=== PATIENT | male | born 1935 | race Two or more races ===

== ENCOUNTER → 2020-02-27 | Emergency (ER) | payer OTHER ==
[~2020-02-27] VITALS: Ht 175.3 cm; Wt 68.0 kg
[~2020-02-27] MED LIST: MORPHINE SULFATE 4 MG/ML SYR/VIAL IV ONE; ONDANSETRON HCL 4 MG/2 ML VIAL IV ONE
[2020-02-27 14:55] LABS: Basophils # (auto) 0 10 ^3/uL (0-0.2); Basophils % (auto) 0.2 % (0.0-2.0); Eosinophils # (auto) 0.4 10 ^3/uL (0-0.8); Eosinophils % (auto) 4.9 % (0.0-7.0); Hematocrit 39.8 % (41.0-53.0); Hemoglobin 13.5 g/dL (13.5-17.5); Lymphocytes # (auto) 1.3 10 ^3/uL (0.4-5.4); Lymphocytes % (auto) 16.5 % (10.0-50.0); Mean Corpuscular Hemoglobin 32.2 pg (28.0-32.0); Mean Corpuscular Hgb Conc. 33.8 g/dL (32.0-36.0); Mean Corpuscular Volume 95.3 fL (80.0-100.0); Monocytes # (auto) 0.6 10 ^3/uL (0-1.3); Monocytes % (auto) 7.8 % (0.0-12.0); Neutrophils # (auto) 5.5 10 ^3/uL (1.6-8.6); Neutrophils % (auto) 70.6 % (37.0-80.0); Platelet Count (auto) 190 10^3/uL (140-450); Red Blood Cells 4.17 10^6/uL (4.5-5.90); Red Cell Distribution Width 13.6 % (11.8-14.3); White Blood Cell 7.8 10^3/uL (4.4-10.8)
[2020-02-27 15:15] LABS: Albumin 3.8 g/dL (3.4-5.0); Calcium 8.4 mg/dL (8.5-10.1); Potassium 3.9 mmol/L (3.5-5.1)
[2020-02-27 15:19] LABS: BUN/Creatinine Ratio 20.2; Bilirubin, Total 0.6 mg/dL (0.2-1.0); Total Protein 7.1 g/dL (6.4-8.2)
[2020-02-27 16:08] VITALS: BP 130/60
== END | disposition home or self-care (01) ==
LOC: ER 13:58
DX: R10.32 Left lower quadrant pain (principal); I10 Essential (primary) hypertension
CPT/HCPCS: 36415; 74176; 80053; 83690; 85025; 93005

== ENCOUNTER 2023-12-05 01:35 | Emergency (ER) | payer OTHER ==
[~2023-12-05] VITALS: Ht 175.3 cm; Wt 80.0 kg
[2023-12-05 01:43] VITALS: O2SAT 100
[2023-12-05] MEDS ORDERED: cloNIDine HCL 0.1 MG TAB PO ONE (01:45)
[2023-12-05 02:04] LABS: Basophils # (auto) 0 10 ^3/uL (0-0.2); Basophils % (auto) 0.2 % (0.0-2.0); Eosinophils # (auto) 0.2 10 ^3/uL (0-0.8); Eosinophils % (auto) 2.2 % (0.0-7.0); Hematocrit 41.6 % (41.0-53.0); Hemoglobin 14.2 g/dL (13.5-17.5); Lymphocytes # (auto) 2.1 10 ^3/uL (0.4-5.4); Mean Corpuscular Hemoglobin 33.5 pg (28.0-32.0); Mean Corpuscular Hgb Conc. 34.1 g/dL (32.0-36.0); Mean Corpuscular Volume 98.3 fL (80.0-100.0); Monocytes # (auto) 1.1 10 ^3/uL (0-1.3); Monocytes % (auto) 14.7 % (0.0-12.0); Neutrophils # (auto) 4.3 10 ^3/uL (1.6-8.6); Neutrophils % (auto) 55.9 % (37.0-80.0); Nucleated Red Blood Cells % 0.1 %; Red Blood Cells 4.23 10^6/uL (4.5-5.90); Red Cell Distribution Width 12.9 % (11.8-14.3); White Blood Cell 7.6 10^3/uL (4.4-10.8)
[2023-12-05 02:44] LABS: Chloride 103 mmol/L (98-107); Potassium 4.7 mmol/L (3.5-5.1); Sodium 135 mmol/L (136-145)
[2023-12-05 02:45] LABS: Anion Gap 7 (5-15); Carbon Dioxide 25 mmol/L (20-30)
[2023-12-05 02:46] LABS: Calcium 9.6 mg/dL (8.7-10.4)
[2023-12-05 02:50] LABS: BUN/Creatinine Ratio 14.3 (10.0-20.0); Blood Urea Nitrogen 12 mg/dL (9-23); Glucose 128 mg/dL (74-106)
[2023-12-05 04:34] VITALS: BP 155/89
[2023-12-05 04:35] VITALS: PULSE 71; RESP 71
== END 2023-12-05 03:00 | disposition home or self-care (01) ==
LOC: EDSEX 01:35 → EDBD 01:35 → ER 01:35
DX: I10 Essential (primary) hypertension (principal)
CPT/HCPCS: 36415; 80048; 85025; 93005

== ENCOUNTER 2025-05-24 12:04 | Inpatient (IN) | payer OTHER ==
[~2025-05-24] VITALS: Ht 172.7 cm; Wt 64.4 kg
--- NOTE | 2025-05-24 12:42 | ED.PDOC ---
GI ASSESSMENT HPI Comments HPI: This is a 89 year old male presenting to the ED with chief complaint of abdominal pain. Patient reports that he has been experiencing intermittent RUQ and LUQ pain for the past 6 weeks, occurring for 5-10 seconds before quickly resolving. Patient relays that he had visited today and was advised to come to the ED for further evaluation to rule out cholelithiasis, pancreatitis, or other abdominal conditions. Patient denies any nausea, vomiting, diarrhea, fever, chills, chest pain, or SOB. Initial Vitals BP: 174/84 HR: 71 RR: 16 O2 Sat: 98% Temp: 97.8F Past Medical history: HTN, DM, Prostate cancer Past Surgical history: Thyroidectomy, Prostatectomy Medications: Levothyroxine Social History: Denies smoking, ETOH, and drug use. Allergies: NKDA jimenez: abd pain HPI: Poor Historian. REVIEW OF SYSTEMS: CONSTITUTIONAL: Denies acute: fever, diaphoresis, chills, generalized weakness. HEAD: Denies acute: headache, photophobia Eyes: Denies acute: Double vision, vision loss, eye pain, eye discharge. EARS: Denies acute: tinnitus, hearing loss, ear discharge, ear pain, THROAT: Denies acute: sore throat, swelling, difficulty swallowing , pain with swallowing, change in voice. NECK: Denies acute: neck pain, neck swelling, stiff neck. HEART: Denies acute : chest pain, palpitations, LUNGS: Denies acute: SOB, wheezing, cough, hemoptysis ABDOMEN: Denies acute: Nausea, Vomiting, diarrhea, melena , hematemesis, hematochezia SKIN: Denies acute: rash, redness, lesions, itchiness. EXTREMITIES: Denies acute: calf pain, numbness, tingling, weakness, denies pain in extremity. Denies acute: Low back pain. Neuro: Denies acute: focal neurological deficit, motor or sensory focal neurological deficit, tremors, seizure like activity, confusion, dizziness, change in mental status, loss of bowel or bladder function, cauda equina like symptoms. : Denies acute: dysuria, hematuria, flank pain, increase in urinary frequency. PSYCH: Denies acute: hallucination, suicidal ideation, homicidal ideation. PHYSICAL EXAM: General: ----no----acute distress, awake and alert. Head: normocephalic, atraumatic. Neck: supple, trachea is midline, no swelling. Throat: Normal phonation. Eyes:, no erythema, no purulent discharge, no proptosis, no icterus. Heart: regular rate, regular rhythm, no significant murmur appreciated. Lungs: no apparent respiratory distress, Able to speak in full sentences. No wheezing, no rhonchi, no crackles. No stridors Clear to auscultation bilaterally. Abdomen: non tender to palpation, non distended, soft, no guarding, no rebound, + bowel sounds. Neuro: Awake, Alert, oriented to name, self, situation, follows commands GCS=15. Speech is normal. Skin: no petechia, no purpura, no cyanosis, non-pale, not jaundice. Lower extremities: --no - Pitting edema no deformity, no focal swelling, no calf TTP. Makes eye contact. moves all four extremities. Face: no apparent facial droop. Ambulating in the ED independently. ED COURSE: DISCLAIMER: This medical document was created using an electronic medical record system with voice recognition software and computerized dictation system. Although this document has been carefully reviewed, there might still be some phonetic and typographical errors. Occasional wrong-word or "sound-alike" substitutions may have occurred due to the inherent limitations of voice recognition software. These areas are purely typographical due to imperfections of the software programs and do not reflect any compromise in the patient's medical care. Please read the chart carefully and recognize, using context, where these substitutions have occurred. Chief Complaint: Abdominal Pain Time Seen by MD: 12:36 Primary Care Provider: UNKNOWN Reviewed Notes: Medications, Allergies Allergies: Coded Allergies: NO KNOWN ALLERGIES (Unverified , 02/27/20) Home Meds Reported Medications Levothyroxine Sodium (Levothyroxine Sodium) 88 Mcg Tab, 1 TAB PO DAILY, #30 TAB 5 Refills 05/24/25 Losartan Potassium (Losartan Potassium) 100 Mg Tab, 1 TAB PO DAILY, #30 TAB 5 Refills 05/24/25 Information Source: Patient, Emergency Med Personnel Mode of Arrival: EMS EKG EKG : Pulse Rate (adult): 66 [place]: Normal Cardiac Rhythm: NSR Block: RBBB Hypertrophy: None ST: Normal Was a procedure done? Was a procedure done?: No GI differential Dx Differential Diagnosis: Other (DDX include but not limited to diverticulitis, colitis, gastroenteritis, acute abdomen, SBO, enteritis, constipation, volvulus, appendicitis, Gallbladder disease, choledocolithiasis, ascending cholangitis, pancreatitis, intraAbdominal mass/neoplasm, hepatitis, UTI, pylonephritis, kidney stone, aneurysm, dissection, Inflammatory bowel disease, gastroparesis, ischemic bowel.) X-Ray, Labs, Meds, VS Vital Signs Date Time Temp Pulse Resp B/P (MAP) Pulse Ox O2 Delivery O2 Flow Rate FiO2 05/24/25 14:01 61 18 98 Venturi Mask 05/24/25 14:01 97.8 61 18 152/89 (110) 98 97.8 05/24/25 13:09 66 05/24/25 12:30 66 05/24/25 12:15 97.8 71 16 174/84 (114) 98 97.8 Lab Test 05/24/25 12:50 05/24/25 12:27 Range/Units White Blood Count 6.2 4.4-10.8 10^3/uL Red Blood Count 4.35 L 4.5-5.90 10^6/uL Hemoglobin 14.1 13.5-17.5 g/dL Hematocrit 41.6 41.0-53.0 % Mean Corpuscular Volume 95.7 80.0-100.0 fL Mean Corpuscular Hemoglobin 32.5 H 28.0-32.0 pg Mean Corpuscular Hemoglobin Concent 33.9 32.0-36.0 g/dL Red Cell Distribution Width 14.4 H 11.8-14.3 % Platelet Count 207 140-450 10^3/uL Mean Platelet Volume 7.9 6.9-10.8 fL Neutrophils (%) (Auto) 61.5 37.0-80.0 % Lymphocytes (%) (Auto) 25.5 10.0-50.0 % Monocytes (%) (Auto) 11.5 0.0-12.0 % Eosinophils (%) (Auto) 1.3 0.0-7.0 % Basophils (%) (Auto) 0.2 0.0-2.0 % Neutrophils # (Auto) 3.8 1.6-8.6 10 ^3/uL Lymphocytes # (Auto) 1.6 0.4-5.4 10 ^3/uL Monocytes # (Auto) 0.7 0-1.3 10 ^3/uL Eosinophils # (Auto) 0.1 0-0.8 10 ^3/uL Basophils # (Auto) 0 0-0.2 10 ^3/uL Nucleated Red Blood Cells 0.0 % Sodium Level 136 136-145 mmol/L Potassium Level 4.0 3.5-5.1 mmol/L Chloride Level 99 98-107 mmol/L Carbon Dioxide Level 27 20-31 mmol/L Anion Gap 10 5-15 Blood Urea Nitrogen 19 9-23 mg/dL Creatinine 0.88 0.700-1.30 mg/dL Glomerular Filtration Rate Calc 82 >90 mL/min BUN/Creatinine Ratio 21.6 H 10.0-20.0 Serum Glucose 99 74-106 mg/dL Lactic Acid Level 2.8 *H 0.4-2.0 mmol/L Calcium Level 9.5 8.7-10.4 mg/dL Total Bilirubin 0.9 0.2-1.0 mg/dL Aspartate Amino Transferase (AST) 25 13-40 U/L Alanine Aminotransferase (ALT) 18 7-40 U/L Alkaline Phosphatase 136 H 46-116 U/L Troponin I High Sensitivity 5 </=54 ng/L Total Protein 7.4 5.7-8.2 g/dL Albumin 5.1 H 3.2-4.8 g/dL Lipase 29 12-53 U/L Urine Color Light-yellow Yellow Urine Clarity Clear Clear Urine pH 7.5 5.0-9.0 Urine Specific [place] 1.010 1.001-1.035 Urine Protein Negative Negative Urine Ketones Negative Negative Urine Blood Trace H Negative /uL Urine Nitrite Negative Negative Urine Bilirubin Negative Negative Urine Urobilinogen Normal Negative mg/dL Urine Leukocyte Esterase Negative Negative /uL Urine RBC 6 0 - 3 /hpf Urine Microscopic WBC < 1 0-3 /HPF Urine Squamous Epithelial Cells None seen <5 /hpf Urine Bacteria None seen None Seen /hpf Urine Glucose Normal Normal mg/dL [facility] [id number] [facility] [id number] Ph: [phone] DIAGNOSTIC IMAGING Diagnostic Imaging Report : [id number] Signed PATIENT: LUCINA JIMENEZ ACCT: [id number] UNIT: [id number] : 1935 LOC: ER ROOM / BED: / AGE / SEX: 89 / M ADM STATUS: REG ER SERVICE 1230 ORDERING PHYSICIAN: AJ VIZCARRA DO PROCEDURE(s): ABPL - CT AB PEL WO CON-NO ORAL OR IV REASON: upper abd pain ORDER NUMBER(s): [id number], ACCESSION NUMBER(s): [id number] Exam: CT CT AB PEL WO CON-NO ORAL OR IV History: upper abd pain Comparison Study: None TECHNIQUE: Multidetector CT of the abdomen and pelvis without IV contrast. Axial, coronal and sagittal multiplanar reformats were obtained from the axial data set by the technologist. Radiation Dose Information: CT Dose: CTDI volume is 8.03 mGy. Dose-length product is 370.69 mGy*cm FINDINGS: Bibasilar atelectasis. Partially visualized heart is unremarkable. hepatic cysts are noted , largest within the left hepatic lobe measuring up to 2.1 cm. Additional subcentimeter hypodense hepatic lesion is noted that is too small to characterize. Calcified granulomas within the spleen. Otherwise, liver, spleen, gallbladder, pancreas and adrenal glands are unremarkable. 4.1 x 4.6 x 4.4 cm exophytic right renal lower pole soft tissue density mass. No hydronephrosis or renal calculi bilaterally. Bilateral Ureters unremarkable. Urinary bladder is decompressed and demonstrates mild wall thickening. Prostate is not definitely visualized with surgical clips of the expected area of the prostate pelvic sidewall. Question prostatectomy with pelvic sidewall lymph node dissection. Mild gastric wall thickening thickening of proximal small bowel loops The edges most likely from inadequate distension. The remainder of the small bowel loops unremarkable. Appendix is not definitely visualized. Large amount of fecal material within the ascending colon rectum. Wall thickening of the distal rectum. Sigmoid diverticulosis with mild sigmoid wall thickening and minimal stranding. No evidence of intraperitoneal free air or free fluid. No evidence of aortic aneurysm. [id number] atherosclerotic calcification of the aorta and bilateral iliacs. No significant lymphadenopathy. Small fat containing right inguinal hernia. Bilateral prominent inguinal lymph nodes which are most likely reactive. Minimal body wall edema. No destructive osseous lesions noted. 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 Sclerotic foci of the bilateral proximal sacrum, S4 vertebral body, and bilateral pelvic bones which may represent bone islands with Blastic lesions not excluded. IMPRESSION: Wall thickening of the urinary bladder which may be from inadequate distension. Correlation urinalysis is recommended to exclude cystitis. Sigmoid diverticulosis with minimal adjacent fat stranding and mild segmental wall thickening of the sigmoid. Correlate for mild diverticulitis/sigmoiditis. Wall thickening of the distal rectum. Correlate for possible neoplasm. 4.1 x 4.6 x 4.4 cm exophytic right renal lower pole soft tissue density mass. Renal protocol CT / MRI should be considered for further evaluation. Hepatic cysts. Additional subcentimeter hypodense hepatic lesion is noted that is too small to characterize. Additional findings as above. ATED BY: BRANDIE LIZ DO DICTATED DATE/TIME: 05/24/25 1314 SIGNED BY: BRANDIE LIZ DO SIGNED DATE/TIME: 05/24/25 1314 CC: Images Reviewed?: Images reviewed and evaluated by me Time of 1ST Reevaluation: 13:36 Reevaluation 1ST: Unchanged Patient Education/Counseling: Diagnosis, Treatment Family Education/Counseling: No Family Present Comments MDM: patient presented with the above HPI.----abdominal pain--workup was initiated. patient was found with the above mentioned diagnosis. the following medications were ordered: please refer to order lists of meds and tests obtained by myself Dr. Vizcarra. Patient ED course and VS have been stabilized. Patient has been reassessed in the ED and remained in a stable condition. Patient has been observed in the ED adequate length of time to insure improvement/stability. Escalation of care considered: Consideration of escalation to observation or admission Patient was ADMITTED to the medicine team for further evaluation and treatment of their presentation. All the reports of any imaging studies that were ordered by myself were reviewed by myself. Departure 1 Departure Time of Disposition: 14:13 Impression: Primary Impression: Diverticulitis of intestine Additional Impressions: Elevated lactic acid level Abnormal finding on CT scan Disposition: ADMITTED INPATIENT Admit to: [facility] Condition: Guarded Discharged With: Self Critical Care Note Critical Care Time?: No I personally scribed for AJ VIZCARRA DO ([email or web address]) on 05/24/25 at 12:42. Electronically submitted by Kobe Ballard ([email or web address]). I personally scribed for AJ VIZCARRA DO ([email or web address]) on 05/24/25 at 13:09. Electronically submitted by Kobe Ballard ([email or web address]). I personally scribed for AJ VIZCARRA DO ([email or web address]) on 05/24/25 at 13:41. Electronically submitted by Kobe Ballard ([email or web address]). AJ VIZCARRA DO May 24, 2025 12:42
--- NOTE | 2025-05-24 13:16 | DVH ---
Exam: CT CT AB PEL WO CON-NO ORAL OR IV History: upper abd pain Comparison Study: None TECHNIQUE: Multidetector CT of the abdomen and pelvis without IV contrast. Axial, coronal and sagitta l multiplanar reformats were obtained from the axial data set by the technologist. Radiation Dose Information: CT Dose: CTDI volume is 8.03 mGy. Dose-length product is 370.69 mGy*cm FINDINGS: Bibasilar atelectasis. Partially visualized heart is unremarkable. hepatic cysts are noted , largest within the left hepatic lobe measuring up to 2.1 cm. Additional [place] bcentimeter hypodense hepatic lesion is noted that is too small to characterize. Calcified granulomas within the spleen. Otherwise, liver, spleen, gallbladder, pancreas and adrenal glands are unremarka ble. 4.1 x 4.6 x 4.4 cm exophytic right renal lower pole soft tissue density mass. No hydronephrosis or re nal calculi bilaterally. Bilateral Ureters unremarkable. Urinary bladder is decompressed and demonstr ates mild wall thickening. Prostate is not definitely visualized with surgical clips of the expected area of the prostate pelvic sidewall. Question prostatectomy with pelvic sidewall lymph node dissect ion. Mild gastric wall thickening thickening of proximal small bowel loops The edges most likely from inad equate distension. The remainder of the small bowel loops unremarkable. Appendix is not definitely v isualized. Large amount of fecal material within the ascending colon rectum. Wall thickening of the d istal rectum. Sigmoid diverticulosis with mild sigmoid wall thickening and minimal stranding. No evidence of intraperitoneal free air or free fluid. No evidence of aortic aneurysm. [id number] atherosclerotic calcification of the aorta and bila teral iliacs. No significant lymphadenopathy. Small fat containing right inguinal hernia. Bilateral prominent inguinal lymph nodes which are most l ikely reactive. Minimal body wall edema. No destructive osseous lesions noted. Grade 2 anterolisthes is of L5 on S1 with chronic bilateral L5 pars defect. Sclerotic foci of the bilateral proximal sacrum , S4 vertebral body, and bilateral pelvic bones which may represent bone islands with Blastic lesions not excluded. IMPRESSION: Wall thickening of the urinary bladder which may be from inadequate distension. Correlation urinalys is is recommended to exclude cystitis. Sigmoid diverticulosis with minimal adjacent fat stranding and mild segmental wall thickening of the sigmoid. Correlate for mild diverticulitis/sigmoiditis. Wall thickening of the distal rectum. Correlate for possible neoplasm. 4.1 x 4.6 x 4.4 cm exophytic right renal lower pole soft tissue density mass. Renal protocol CT / MRI should be considered for further evaluation. Hepatic cysts. Additional subcentimeter hypodense hepatic lesion is noted that is too small to charac terize. Additional findings as above.
[2025-05-24 13:28] LABS: Hematocrit 41.6 % (41.0-53.0); Hemoglobin 14.1 g/dL (13.5-17.5); Mean Corpuscular Hemoglobin 32.5 pg (28.0-32.0); Mean Corpuscular Volume 95.7 fL (80.0-100.0); Nucleated Red Blood Cells % 0.0 %
[2025-05-24 13:38] LABS: Alanine Aminotransferase 18 U/L (7-40); Anion Gap 10 (5-15); BUN/Creatinine Ratio 21.6 (10.0-20.0); Blood Urea Nitrogen 19 mg/dL (9-23); Calcium 9.5 mg/dL (8.7-10.4); Carbon Dioxide 27 mmol/L (20-31); Chloride 99 mmol/L (98-107); Glucose 99 mg/dL (74-106); Lipase 29 U/L (12-53); Potassium 4.0 mmol/L (3.5-5.1); Sodium 136 mmol/L (136-145); Total Protein 7.4 g/dL (5.7-8.2)
[2025-05-24 13:39] LABS: Bilirubin, Total 0.9 mg/dL (0.2-1.0); Lactic Acid w/Reflex 2.8 mmol/L (0.4-2.0)
[2025-05-24 13:42] LABS: Albumin 5.1 g/dL (3.2-4.8); Alkaline Phosphatase 136 U/L (46-116)
[2025-05-24 14:06] LABS: Urine Protein, UAD Negative (Negative)
[2025-05-24] MEDS ORDERED: HYDROcodone-ACET 5/325MG TAB PO PRN (15:00)
[2025-05-24] MEDS ORDERED: ONDANSETRON HCL 4 MG/2 ML VIAL IV PRN (15:00)
[2025-05-24] MEDS ORDERED: ACETAMINOPHEN 325 MG TAB PO PRN (15:00)
[2025-05-24] MEDS ORDERED: DEXTROSE (50%) 50ML SYRG IV PRN (15:00)
[2025-05-24] MEDS ORDERED: MORPHINE SULFATE INJ 2 MG/ml SYRG IV PRN (15:00)
[2025-05-24] MEDS: CIPROFLOXACIN 400MG/200ML 200 ML IV ONE (15:03)
--- NOTE | 2025-05-24 15:43 | DVHHP2 ---
History of Present Illness Reason for Visit: Abdominal pain History of Present Illness 89-year-old male presents for evaluation of abdominal pain. Patient reports a five week history of intermittent seen nor or abdominal pain. He states that over the past is five days he has been more constant this. Denies nausea or vomiting. No fever or chills. No other acute complaints reported. Past Medical History Prostate cancer, diabetes mellitus, hypertension Past Surgical History Thyroidectomy, prostatectomy Family History Noncontributory Smoke: No ALCOHOL: none Drugs: None Review of Systems Review of Systems Review of systems are currently negative otherwise addressed in HPI. Allergies: Coded Allergies: NO KNOWN ALLERGIES (Unverified , 02/27/20) Medications Current Medications Medications Dose Ordered Sig/Bruno Route Start Time Stop Time Status Last Admin Dose Admin Losartan Potassium 100 mg DAILY PO 05/25/25 10:00 Levothyroxine Sodium 88 mcg QAM@0600 PO 05/25/25 06:00 Atorvastatin Calcium 10 mg HS PO 05/24/25 22:00 Furosemide 20 mg BIDD PO 05/24/25 18:00 Diagnostic Test (Pha) 1 strip ACHS 05/24/25 17:00 Insulin Human Regular ACHS SC 05/24/25 17:00 Dextrose 50 ml UD PRN IV 05/24/25 15:00 Acetaminophen/ Hydrocodone Bitart 1 tab Q4HP PRN PO 05/24/25 15:00 Ondansetron HCl 4 mg Q4HP PRN IV 05/24/25 15:00 Acetaminophen 650 mg Q6HP PRN PO 05/24/25 15:00 Morphine Sulfate 2 mg Q6HPRN PRN IV 05/24/25 15:00 Exam Vital Signs Vital Signs Date Time Temp Pulse Resp B/P (MAP) Pulse Ox O2 Delivery O2 Flow Rate FiO2 05/24/25 14:01 61 18 98 Venturi Mask 05/24/25 14:01 97.8 152/89 (110) 97.8 Exam Gen: 89-year-old male in mild distress. Skin: Warm, dry, normal color and texture, no rash. HEENT: Normocephalic atraumatic, mucous membranes moist and pink. Neck: Cervical and supraclavicular nodes normal without enlargement, trachea is midline, thyroid gland is normal without masses. Pulmonary: Clear to auscultation and percussion bilaterally. Cardiac: Regular rate and rhythm. No murmur Abdomen: Soft, lower abdominal tenderness, nondistended, bowel sounds present all 4 quadrants, no guarding, no rigidity, no organomegaly. Extremities: No cyanosis, clubbing, no edema Neuro: Cranial nerves II through XII grossly intact, normal affect and speech, no focal motor deficits. Labs/Xrays ORDERING PHYSICIAN: AJ VIZCARRA DO PROCEDURE(s): ABPL - CT AB PEL WO CON-NO ORAL OR IV REASON: upper abd pain ORDER NUMBER(s): [id number], ACCESSION NUMBER(s): [id number] Exam: CT CT AB PEL WO CON-NO ORAL OR IV History: upper abd pain Comparison Study: None TECHNIQUE: Multidetector CT of the abdomen and pelvis without IV contrast. Axial, coronal and sagittal multiplanar reformats were obtained from the axial data set by the technologist. Radiation Dose Information: CT Dose: CTDI volume is 8.03 mGy. Dose-length product is 370.69 mGy*cm FINDINGS: Bibasilar atelectasis. Partially visualized heart is unremarkable. hepatic cysts are noted , largest within the left hepatic lobe measuring up to 2.1 cm. Additional subcentimeter hypodense hepatic lesion is noted that is too small to characterize. Calcified granulomas within the spleen. Otherwise, liver, spleen, gallbladder, pancreas and adrenal glands are unremarkable. 4.1 x 4.6 x 4.4 cm exophytic right renal lower pole soft tissue density mass. No hydronephrosis or renal calculi bilaterally. Bilateral Ureters unremarkable. Urinary bladder is decompressed and demonstrates mild wall thickening. Prostate is not definitely visualized with surgical clips of the expected area of the prostate pelvic sidewall. Question prostatectomy with pelvic sidewall lymph node dissection. Mild gastric wall thickening thickening of proximal small bowel loops The edges most likely from inadequate distension. The remainder of the small bowel loops unremarkable. Appendix is not definitely visualized. Large amount of fecal material within the ascending colon rectum. Wall thickening of the distal rectum. Sigmoid diverticulosis with mild sigmoid wall thickening and minimal stranding. No evidence of intraperitoneal free air or free fluid. No evidence of aortic aneurysm. [id number] atherosclerotic calcification of the aorta and bilateral iliacs. No significant lymphadenopathy. Small fat containing right inguinal hernia. Bilateral prominent inguinal lymph nodes which are most likely reactive. Minimal body wall edema. No destructive osseous lesions noted. 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 Sclerotic foci of the bilateral proximal sacrum, S4 vertebral body, and bilateral pelvic bones which may represent bone islands with Blastic lesions not excluded. IMPRESSION: Wall thickening of the urinary bladder which may be from inadequate distension. Correlation urinalysis is recommended to exclude cystitis. Sigmoid diverticulosis with minimal adjacent fat stranding and mild segmental wall thickening of the sigmoid. Correlate for mild diverticulitis/sigmoiditis. Wall thickening of the distal rectum. Correlate for possible neoplasm. 4.1 x 4.6 x 4.4 cm exophytic right renal lower pole soft tissue density mass. Renal protocol CT / MRI should be considered for further evaluation. Hepatic cysts. Additional subcentimeter hypodense hepatic lesion is noted that is too small to characterize. Additional findings as above. Labs Test 05/24/25 15:10 05/24/25 12:50 05/24/25 12:27 Range/Units White Blood Count 6.2 4.4-10.8 10^3/uL Red Blood Count 4.35 L 4.5-5.90 10^6/uL Hemoglobin 14.1 13.5-17.5 g/dL Hematocrit 41.6 41.0-53.0 % Mean Corpuscular Volume 95.7 80.0-100.0 fL Mean Corpuscular Hemoglobin 32.5 H 28.0-32.0 pg Mean Corpuscular Hemoglobin Concent 33.9 32.0-36.0 g/dL Red Cell Distribution Width 14.4 H 11.8-14.3 % Platelet Count 207 140-450 10^3/uL Mean Platelet Volume 7.9 6.9-10.8 fL Neutrophils (%) (Auto) 61.5 37.0-80.0 % Lymphocytes (%) (Auto) 25.5 10.0-50.0 % Monocytes (%) (Auto) 11.5 0.0-12.0 % Eosinophils (%) (Auto) 1.3 0.0-7.0 % Basophils (%) (Auto) 0.2 0.0-2.0 % Neutrophils # (Auto) 3.8 1.6-8.6 10 ^3/uL Lymphocytes # (Auto) 1.6 0.4-5.4 10 ^3/uL Monocytes # (Auto) 0.7 0-1.3 10 ^3/uL Eosinophils # (Auto) 0.1 0-0.8 10 ^3/uL Basophils # (Auto) 0 0-0.2 10 ^3/uL Nucleated Red Blood Cells 0.0 % Sodium Level 136 136-145 mmol/L Potassium Level 4.0 3.5-5.1 mmol/L Chloride Level 99 98-107 mmol/L Carbon Dioxide Level 27 20-31 mmol/L Anion Gap 10 5-15 Blood Urea Nitrogen 19 9-23 mg/dL Creatinine 0.88 0.700-1.30 mg/dL Glomerular Filtration Rate Calc 82 >90 mL/min BUN/Creatinine Ratio 21.6 H 10.0-20.0 Serum Glucose 99 74-106 mg/dL Calcium Level 9.5 8.7-10.4 mg/dL Total Bilirubin 0.9 0.2-1.0 mg/dL Aspartate Amino Transferase (AST) 25 13-40 U/L Alanine Aminotransferase (ALT) 18 7-40 U/L Alkaline Phosphatase 136 H 46-116 U/L Troponin I High Sensitivity 5 </=54 ng/L Total Protein 7.4 5.7-8.2 g/dL Albumin 5.1 H 3.2-4.8 g/dL Lipase 29 12-53 U/L Urine Color Light-yellow Yellow Urine Clarity Clear Clear Urine pH 7.5 5.0-9.0 Urine Specific [place] 1.010 1.001-1.035 Urine Protein Negative Negative Urine Ketones Negative Negative Urine Blood Trace H Negative /uL Urine Nitrite Negative Negative Urine Bilirubin Negative Negative Urine Urobilinogen Normal Negative mg/dL Urine Leukocyte Esterase Negative Negative /uL Urine RBC 6 0 - 3 /hpf Urine Microscopic WBC < 1 0-3 /HPF Urine Squamous Epithelial Cells None seen <5 /hpf Urine Bacteria None seen None Seen /hpf Urine Glucose Normal Normal mg/dL SEPSIS Sepsis Screen Date sepsis recognized/suspect: May 24, 2025 Time Sepsis recognized/suspect: 1214 Recent Procedure: No On Antibiotic Therapy: No Respiratory Rate >20: No Heart Rate >90: No Temp<36 C (96.8 F) or >38.3 C: No SBP <90 or MAP <65 mmHG: No New Acute Mental Status Change: No Is the patient on CPAP, BIPAP,: No Physician Orders Troponin-I Hs (05/24/25 18:00) Troponin-I Hs (05/25/25 00:00) Ct Ab Pel Wo Con-No Oral Or Iv (05/24/25 12:30) Heplock Iv (05/24/25 12:30) Machine Tool Rebuilder (05/24/25 12:30) Electrocardigram (05/24/25 12:30) Losartan Tablet (Cozaar Tablet) (05/25/25 10:00) Levothyroxine Tablet (Synthroid Tablet) (05/25/25 06:00) Atorvastatin (Lipitor) (05/24/25 22:00) Furosemide Tablet (Lasix Tablet) (05/24/25 18:00) * [facility] Vocational Case Manager (05/24/25 14:51) Sodium Chloride 0.9% (05/24/25 15:00) Basic Metabolic Panel (05/25/25 04:00) Glucose Blood (Accu-Chek Comfort Curve T (05/24/25 17:00) Insulin R (Human) (Insulin R) (05/24/25 17:00) Dextrose 50% Syringe (05/24/25 15:00) Admit (05/24/25 14:51) Hydrocodone-Acet 5/325mg Tab ([place] 5/32 (05/24/25 15:00) Ondansetron Hcl (Zofran) (05/24/25 15:00) Complete Blood Count (05/25/25 04:00) Cardiac Diet-2gna,Lofat,Lochol (05/24/25 Dinner) Condition: Stable (05/24/25 14:51) Acetaminophen Tablet (Tylenol Tablet) (05/24/25 15:00) Bedrest With Bathroom Privileg (05/24/25 14:51) Morphine Sulfate Injection (05/24/25 15:00) Vital Signs Date Time Temp Pulse Resp B/P (MAP) Pulse Ox O2 Delivery O2 Flow Rate FiO2 05/24/25 14:01 61 18 98 Venturi Mask 05/24/25 14:01 97.8 61 18 152/89 (110) 98 97.8 05/24/25 13:09 66 05/24/25 12:30 66 05/24/25 12:15 97.8 71 16 174/84 (114) 98 97.8 Laboratory Tests Test 05/24/25 12:50 05/24/25 15:10 Lactic Acid Level 2.8 mmol/L (0.4-2.0) *H Pending White Blood Count 6.2 10^3/uL (4.4-10.8) Medications Medications Dose Ordered Sig/Bruno Route Start Time Stop Time Status Last Admin Dose Admin Ciprofloxacin 200 ml @ 200 mls/hr ONCE ONCE IV 05/24/25 14:15 05/24/25 15:14 DC 05/24/25 15:03 200 MLS/HR Metronidazole 100 ml @ 100 mls/hr ONCE ONCE IV 05/24/25 14:15 05/24/25 15:14 DC 05/24/25 15:03 100 MLS/HR Assessment/Plan Assessment/Plan Assessment Acute diverticulitis Acute abdominal pain Diabetes mellitus Hypertension Admit the patient to [facility] [place] the hospitalist GI consultation Clear liquid diet Pain management Resume home medications Continue treatment per orders. Plan discussed with: Patient My Orders Orders - TEJAL NARAYAN AGACN Procedure Category Date Status Time Losartan Tablet PHA 05/25/25 In Process (Cozaar Tablet) 10:00 Levothyroxine Tablet PHA 05/25/25 In Process (Synthroid Tablet) 06:00 Atorvastatin (Lipitor) PHA 05/24/25 In Process 22:00 Furosemide Tablet PHA 05/24/25 In Process (Lasix Tablet) 18:00 * [facility] Vocational Case Manager CONS 05/24/25 Transmitted 14:51 Sodium Chloride 0.9% PHA 05/24/25 In Process 15:00 Basic Metabolic Panel LAB 05/25/25 Verified 04:00 Glucose Blood PHA 05/24/25 In Process (Accu-Chek Comfort 17:00 Insulin R (Human) PHA 05/24/25 In Process (Insulin R) 17:00 Dextrose 50% Syringe PHA 05/24/25 In Process 15:00 Admit ADMIT 05/24/25 Transmitted 14:51 Hydrocodone-Acet PHA 05/24/25 In Process 5/325mg Tab ([place] 15:00 Ondansetron Hcl PHA 05/24/25 In Process (Zofran) 15:00 Complete Blood Count LAB 05/25/25 Verified 04:00 Cardiac DIET 05/24/25 Transmitted Diet-2gna,Lofat,Lochol Dinner Condition: Stable EBONY 05/24/25 In Process 14:51 Acetaminophen Tablet PHA 05/24/25 In Process (Tylenol Tablet) 15:00 Bedrest With Bathroom EBONY 05/24/25 In Process Privileg 14:51 Morphine Sulfate PHA 05/24/25 In Process Injection 15:00 Date of Service: May 24, 2025 Billing Provider: TEJAL NARAYAN Common Visit Codes: [id number] INP/OBS CARE (HIGH) TEJAL NARAYAN May 24, 2025 15:43
[2025-05-24 16:31] VITALS: BP 181/92; PULSE 59; RESP 18; TEMP 97.5; O2SAT 100
[2025-05-24] MEDS ORDERED: LEVO88TA4 PO (17:46)
[2025-05-24] MEDS ORDERED: LOSA-535 PO (17:46)
[2025-05-24] MEDS: InsuLIN REG 1unit/0.01ml Soln (100units/ml) SC SCH (18:15)
[2025-05-24] MEDS: SODIUM CHLORIDE 0.9% 500 ML IV ONE (18:15)
[2025-05-24] MEDS: ACCU-CHEK COMFORT CURVE STRIP VI SCH (18:15)
[2025-05-24] MEDS: FUROSEMIDE 20 MG TAB PO SCH (18:16)
--- NOTE | 2025-05-24 18:54 | ECG ---
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
[2025-05-24 21:00] VITALS: BP 109/65; PULSE 56; RESP 18; TEMP 97.8; O2SAT 100
[2025-05-24] MEDS: ATORVASTATIN 20 MG TAB PO SCH (21:00)
--- NOTE | 2025-05-24 21:09 | DVHINCON2 ---
Date of service: May 24, 2025 Referring Physician Júnior Reason for Consultation Acute diverticulitis History of Present Illness 89-year-old male presents for evaluation of abdominal pain. Patient reports a five week history of intermittent abdominal pain. He states that over the past is five days he has been more constant . Denies nausea or vomiting. No fever or chills. No other acute complaints reported. Past Medical History Past Medical History Prostate cancer, diabetes mellitus, hypertension Past Surgical History Past Surgical History Thyroidectomy, prostatectomy Family History: Patient reports no known family medical history. Family History Family History Noncontributory Social History Smoke: No ALCOHOL: none Drugs: None Allergies: Coded Allergies: NO KNOWN ALLERGIES (Unverified , 02/27/20) Home Meds Reported Medications Levothyroxine Sodium (Levothyroxine Sodium) 88 Mcg Tab, 1 TAB PO DAILY, #30 TAB 5 Refills 05/24/25 Losartan Potassium (Losartan Potassium) 100 Mg Tab, 1 TAB PO DAILY, #30 TAB 5 Refills 05/24/25 Current Medications Current Medications Medications (Trade) Dose Ordered Sig/Bruno Route PRN Reason Start Time Stop Time Status Last Admin Losartan Potassium (Cozaar Tablet) 100 mg DAILY PO 05/25/25 10:00 Levothyroxine Sodium (Synthroid Tablet) 88 mcg QAM@0600 PO 05/25/25 06:00 Atorvastatin Calcium (Lipitor) 10 mg HS PO 05/24/25 22:00 Furosemide (Lasix Tablet) 20 mg BIDD PO 05/24/25 18:00 05/24/25 18:16 Diagnostic Test (Pha) (Accu-Chek Comfort Curve T) 1 strip ACHS 05/24/25 17:00 Insulin Human Regular (InsuLIN R) ACHS SC 05/24/25 17:00 Dextrose 50 ml UD PRN IV Blood Sugar LESS THAN 60 05/24/25 15:00 Acetaminophen/ Hydrocodone Bitart ([place] 5/325MG Tab) 1 tab Q4HP PRN PO MODERATE PAIN (4-6 PAIN SCALE) 05/24/25 15:00 Ondansetron HCl (Zofran) 4 mg Q4HP PRN IV NAUSEA / VOMITING 05/24/25 15:00 Acetaminophen (Tylenol Tablet) 650 mg Q6HP PRN PO PAIN SCALE 1-3 OR TEMP>100.4 05/24/25 15:00 Morphine Sulfate 2 mg Q6HPRN PRN IV SEVERE PAIN (7-10 PAIN SCALE) 05/24/25 15:00 Clonidine HCl (Catapres Tablet) 0.1 mg Q6HP PRN PO SBP>160 05/24/25 18:15 UNV Vital Signs Vital Signs Date Time Temp Pulse Resp B/P (MAP) Pulse Ox O2 Delivery O2 Flow Rate FiO2 05/24/25 18:20 191/98 05/24/25 16:31 Room Air* 0 21 05/24/25 16:31 97.5 59 18 100 97.5 Physical Exam Gen: 89-year-old male in no distress. Skin: Warm, dry, normal color and texture, no rash. HEENT: Normocephalic atraumatic, mucous membranes moist and pink. Pulmonary: Clear to auscultation and percussion bilaterally. Cardiac: Regular rate and rhythm. No murmur Abdomen: Soft, lower abdominal tenderness, nondistended, bowel sounds present all 4 quadrants, no guarding, no rigidity, no organomegaly. Extremities: No cyanosis, clubbing, no edema Neuro: Cranial nerves II through XII grossly intact, normal affect and speech, no focal motor deficits. Labs/Diagnostic Data Labs Test 05/24/25 18:24 05/24/25 15:10 05/24/25 12:50 05/24/25 12:27 Range/Units Troponin I High Sensitivity 4 </=54 ng/L Lactic Acid Level 0.8 0.4-2.0 mmol/L White Blood Count 6.2 4.4-10.8 10^3/uL Red Blood Count 4.35 L 4.5-5.90 10^6/uL Hemoglobin 14.1 13.5-17.5 g/dL Hematocrit 41.6 41.0-53.0 % Mean Corpuscular Volume 95.7 80.0-100.0 fL Mean Corpuscular Hemoglobin 32.5 H 28.0-32.0 pg Mean Corpuscular Hemoglobin Concent 33.9 32.0-36.0 g/dL Red Cell Distribution Width 14.4 H 11.8-14.3 % Platelet Count 207 140-450 10^3/uL Mean Platelet Volume 7.9 6.9-10.8 fL Neutrophils (%) (Auto) 61.5 37.0-80.0 % Lymphocytes (%) (Auto) 25.5 10.0-50.0 % Monocytes (%) (Auto) 11.5 0.0-12.0 % Eosinophils (%) (Auto) 1.3 0.0-7.0 % Basophils (%) (Auto) 0.2 0.0-2.0 % Neutrophils # (Auto) 3.8 1.6-8.6 10 ^3/uL Lymphocytes # (Auto) 1.6 0.4-5.4 10 ^3/uL Monocytes # (Auto) 0.7 0-1.3 10 ^3/uL Eosinophils # (Auto) 0.1 0-0.8 10 ^3/uL Basophils # (Auto) 0 0-0.2 10 ^3/uL Nucleated Red Blood Cells 0.0 % Sodium Level 136 136-145 mmol/L Potassium Level 4.0 3.5-5.1 mmol/L Chloride Level 99 98-107 mmol/L Carbon Dioxide Level 27 20-31 mmol/L Anion Gap 10 5-15 Blood Urea Nitrogen 19 9-23 mg/dL Creatinine 0.88 0.700-1.30 mg/dL Glomerular Filtration Rate Calc 82 >90 mL/min BUN/Creatinine Ratio 21.6 H 10.0-20.0 Serum Glucose 99 74-106 mg/dL Calcium Level 9.5 8.7-10.4 mg/dL Total Bilirubin 0.9 0.2-1.0 mg/dL Aspartate Amino Transferase (AST) 25 13-40 U/L Alanine Aminotransferase (ALT) 18 7-40 U/L Alkaline Phosphatase 136 H 46-116 U/L Total Protein 7.4 5.7-8.2 g/dL Albumin 5.1 H 3.2-4.8 g/dL Lipase 29 12-53 U/L Urine Color Light-yellow Yellow Urine Clarity Clear Clear Urine pH 7.5 5.0-9.0 Urine Specific [place] 1.010 1.001-1.035 Urine Protein Negative Negative Urine Ketones Negative Negative Urine Blood Trace H Negative /uL Urine Nitrite Negative Negative Urine Bilirubin Negative Negative Urine Urobilinogen Normal Negative mg/dL Urine Leukocyte Esterase Negative Negative /uL Urine RBC 6 0 - 3 /hpf Urine Microscopic WBC < 1 0-3 /HPF Urine Squamous Epithelial Cells None seen <5 /hpf Urine Bacteria None seen None Seen /hpf Urine Glucose Normal Normal mg/dL CT SCAN ABD Pelvis IMPRESSION: Wall thickening of the urinary bladder which may be from inadequate distension. Correlation urinalysis is recommended to exclude cystitis. Sigmoid diverticulosis with minimal adjacent fat stranding and mild segmental wall thickening of the sigmoid. Correlate for mild diverticulitis/sigmoiditis. Wall thickening of the distal rectum. Correlate for possible neoplasm. 4.1 x 4.6 x 4.4 cm exophytic right renal lower pole soft tissue density mass. Renal protocol CT / MRI should be considered for further evaluation. Hepatic cysts. Additional subcentimeter hypodense hepatic lesion is noted that is too small to characterize. Additional findings as above. Problems(with codes): (1) Diverticulitis of intestine (2) Elevated lactic acid level (3) Abnormal finding on CT scan (4) Abdominal pain of unknown etiology Plan/Recommendation Plan IV fluid hydration Clear liquid diet IV antibiotics Pain control Monitor labs Outpatient follow up with GI Services for elective colonoscopy Plan discussed with: Other (None) NOE WILSON MD May 24, 2025 21:09
[2025-05-25 01:00] VITALS: BP 118/61; PULSE 49; RESP 18; TEMP 98; O2SAT 99
[2025-05-25 05:00] VITALS: BP 132/79; PULSE 50; RESP 18; TEMP 98.2; O2SAT 99
[2025-05-25] MEDS: LEVOTHYROXINE SODIUM 88 MCG TAB PO SCH (06:29)
[2025-05-25 07:22] LABS: Chloride 100 mmol/L (98-107); Potassium 4.1 mmol/L (3.5-5.1)
[2025-05-25 07:23] LABS: Anion Gap 7 (5-15); Calcium 9.1 mg/dL (8.7-10.4); Carbon Dioxide 28 mmol/L (20-31)
[2025-05-25 07:28] LABS: BUN/Creatinine Ratio 20.5 (10.0-20.0); Blood Urea Nitrogen 18 mg/dL (9-23); Glucose 100 mg/dL (74-106)
[2025-05-25 07:29] LABS: Sodium 135 mmol/L (136-145)
[2025-05-25 07:55] LABS: Hematocrit 39.7 % (41.0-53.0); Hemoglobin 13.7 g/dL (13.5-17.5); Mean Corpuscular Hemoglobin 32.6 pg (28.0-32.0); Mean Corpuscular Volume 94.8 fL (80.0-100.0)
[2025-05-25 09:00] VITALS: BP 168/83; PULSE 55; RESP 17; TEMP 98.3; O2SAT 100
[2025-05-25 09:22] LABS: Anisocytosis Slight; Total Cells Counted 100.0 (100)
[2025-05-25] MEDS: LOSARTAN POTASSIUM 50 MG TAB PO SCH (09:48)
--- NOTE | 2025-05-25 12:11 | DVHPN2 ---
Subjective The patient is seen and examined at bedside. No complaint today. Reviewed: Care Plan, H&P, Labs, Medications, Previous Orders, Radiology Changes from previous H/P or p: No Changes Objective Vitals Vital Signs Date Time Temp Pulse Resp B/P (MAP) Pulse Ox O2 Delivery O2 Flow Rate FiO2 05/25/25 09:48 171/82 05/25/25 09:00 98.3 55 17 100 98.3 05/25/25 08:00 Room Air* 0 21 Intake/Output Intake and Output 05/25/25 06:59 Intake Total 750 ml Balance 750 ml Intake Oral 550 ml IV Total 200 ml # Voids 3 General Appearance: Alert, Oriented X3, Cooperative, No acute distress HEENT: Atraumatic, PERRLA, EOMI, Mucous membr. moist/pink Neck: Supple Lungs: Clear to auscultation, Normal air movement Cardiovascular: Regular rate, Normal S1, Normal S2, No murmurs, Gallops, Rubs Abdomen: Normal bowel sounds, Soft, No tenderness Neuro: Cranial nerves 3-12 NL Psych/Mental Status: Mental status NL Medications Current Medications Medications Dose Ordered Sig/Bruno Route Start Time Stop Time Status Last Admin Dose Admin Losartan Potassium 100 mg DAILY PO 05/25/25 10:00 05/25/25 09:48 100 MG Levothyroxine Sodium 88 mcg QAM@0600 PO 05/25/25 06:00 05/25/25 06:29 88 MCG Atorvastatin Calcium 10 mg HS PO 05/24/25 22:00 05/24/25 21:00 10 MG Furosemide 20 mg BIDD PO 05/24/25 18:00 05/25/25 06:29 20 MG Diagnostic Test (Pha) 1 strip ACHS 05/24/25 17:00 05/25/25 06:33 1 STRIP Insulin Human Regular ACHS SC 05/24/25 17:00 Dextrose 50 ml UD PRN IV 05/24/25 15:00 Acetaminophen/ Hydrocodone Bitart 1 tab Q4HP PRN PO 05/24/25 15:00 Ondansetron HCl 4 mg Q4HP PRN IV 05/24/25 15:00 Acetaminophen 650 mg Q6HP PRN PO 05/24/25 15:00 Morphine Sulfate 2 mg Q6HPRN PRN IV 05/24/25 15:00 Clonidine HCl 0.1 mg Q6HP PRN PO 05/25/25 00:15 Laboratory Results Laboratory Tests 05/25/25 05:55 Chemistry Test 05/24/25 12:50 05/25/25 05:55 Albumin 5.1 g/dL (3.2-4.8) H Calcium Level 9.5 mg/dL (8.7-10.4) 9.1 mg/dL (8.7-10.4) Total Protein 7.4 g/dL (5.7-8.2) Lipid panel Test 05/24/25 12:50 Lipase 29 U/L (12-53) LFT Test 05/24/25 12:50 Alanine Aminotransferase (ALT) 18 U/L (7-40) Alkaline Phosphatase 136 U/L (46-116) H Aspartate Amino Transferase (AST) 25 U/L (13-40) Total Bilirubin 0.9 mg/dL (0.2-1.0) Urinalysis Test 05/24/25 12:27 Urine Color Light-yellow (Yellow) Urine Clarity Clear (Clear) Urine pH 7.5 (5.0-9.0) Urine Specific [place] 1.010 (1.001-1.035) Urine Protein Negative (Negative) Urine Ketones Negative (Negative) Urine Blood Trace /uL (Negative) H Urine Nitrite Negative (Negative) Urine Bilirubin Negative (Negative) Urine Urobilinogen Normal mg/dL (Negative) Urine Leukocyte Esterase Negative /uL (Negative) Urine RBC 6 /hpf (0 - 3) Urine Microscopic WBC < 1 /HPF (0-3) Urine Squamous Epithelial Cells None seen /hpf (<5) Urine Bacteria None seen /hpf (None Seen) Urine Glucose Normal mg/dL (Normal) Labs and/or images reviewed: Labs reviewed by me Assessment/Plan Assessment/Plan Acute abdominal pain Acute mild diverticulitis Diabetes mellitus Hypertension Cystitis Right renal lower pole soft tissue density mass Wall thickening of the distal rectum, possible neoplasm per CT scan Plan: Continuing current management. Waiting for GI specialist to see the patient. I am going to order an MRI of the abdomen to further study the kidney mass. Discussed with patient in length regarding to possible workup for malignancy. Per patient he wanted to know what going on however he did not entertain any heroic treatment such as surgery or chemo for example. CT abdomen pelvis review showed: Wall thickening of the urinary bladder which may be from inadequate distension. Correlation urinalysis is recommended to exclude cystitis.Sigmoid diverticulosis with minimal adjacent fat stranding and mild segmental wall thickening of the sigmoid. Correlate for mild diverticulitis/sigmoiditis.Wall thickening of the distal rectum. Correlate for possible neoplasm.4.1 x 4.6 x 4.4 cm exophytic right renal lower pole soft tissue density mass. Renal protocol CT / MRI should be considered for further evaluation.Hepatic cysts. Additional subcentimeter hypodense hepatic lesion is noted that is too small to characterize. This medical document was created using an electronic medical record system with [employer] computerized dictation system. Although this document has been carefully reviewed, there may still be some phonetic and typographical errors. These areas are purely typographical due to imperfections of the software programs, and do not reflect any compromise in the patient's medical care. Plan discussed with: Patient, Other (friend, son) Date of Service: May 25, 2025 Billing Provider: MERYL VU MD Common Visit Codes: [id number] INP/OBS CARE(HIGH) MERYL VU MD May 25, 2025 12:11
[2025-05-25 13:00] VITALS: BP 155/84; PULSE 97; RESP 18; TEMP 97.8; O2SAT 98
[2025-05-25] MEDS: GADOTERATE MEG 10 MMOL/20ml INJ (0.5MMOL/ml) IV ONE (13:48)
--- NOTE | 2025-05-25 17:47 | DVH ---
PROCEDURE: MRI MRI ABD PLEVIS W/WO CONT Indication: Previous CT and described The right renal potential mass. COMPARISON: None TECHNIQUE: Multiplanar multisequence images of the abdomen, pelvis were obtained with and without con trast.. FINDINGS: Adrenal glands, spleen unremarkable. 3 mm pancreatic tail cystic lesion. Multiple hepatic cysts including right hepatic lobe cysts measuring 2.2 cm, left hepatic lobe cyst me asuring 2.3 cm. No evidence for cholelithiasis. Common bile duct measures 6 mm. The kidneys demonstrate no hydronephrosis. Right renal T2 dark lesion measuring 4.4 x 3.6 cm. This le brian contains an internal septation with enhancement. There is overall heterogeneous signal within t his lesion. Lesion does not have the features of the simple cyst. Stomach is partially distended. Rectal/anal wall thickening most pronounced anteriorly at the 12 o'cl ock position Colonic diverticular disease. No secondary signs for appendicitis. Abdominal aorta normal in caliber. No retroperitoneal lymphadenopathy. Small fat containing right ing uinal hernia. No inguinal lymphadenopathy. Bladder is partially distended. No free pelvic fluid. Susceptibility artifact of the lower pelvis fro m the surgical ruth in the pelvis and pelvic sidewall. IMPRESSION: Heterogeneous septated lesion measuring 4.4 cm in the right renal mid to lower pole with enhancement of the septation and overall signal characteristics that are not characteristic of a simple cyst. Th is could represent renal neoplasm versus complex cyst. Recommend urology consultation for further ma nagement. PET scan/ tissue sampling can be obtained to further evaluate. Rectal/anal wall thickening. Recommend GI consultation to further evaluate exclude neoplasm. Other findings as described
[2025-05-25 21:00] VITALS: BP 148/80; PULSE 59; RESP 18; TEMP 97.6; O2SAT 98
--- NOTE | 2025-05-25 21:02 | DVHPN2 ---
Progress Note - Dictate Date Seen: May 25, 2025 Medical Necessity Reason Pt with a Central, PICC or Fol: No Subjective No new complaints Patient is tolerating a carb controlled diet He had one bowel movement today, no rectal bleeding MRI findings noted vital signs Vital Sign Date Time Temp Pulse Resp B/P (MAP) Pulse Ox O2 Delivery O2 Flow Rate FiO2 05/25/25 18:20 168/89 05/25/25 13:00 97.8 97 18 98 97.8 05/25/25 08:00 Room Air* 0 21 Total Intake and Output 05/24/25 05/24/25 05/25/25 15:00 23:00 07:00 Intake Total 250 ml 500 ml Balance 250 ml 500 ml medications Current Medications Medications Dose Ordered Sig/Bruno Route Start Time Stop Time Status Last Admin Dose Admin Losartan Potassium 100 mg DAILY PO 05/25/25 10:00 05/25/25 09:48 100 MG Levothyroxine Sodium 88 mcg QAM@0600 PO 05/25/25 06:00 05/25/25 06:29 88 MCG Atorvastatin Calcium 10 mg HS PO 05/24/25 22:00 05/24/25 21:00 10 MG Furosemide 20 mg BIDD PO 05/24/25 18:00 05/25/25 06:29 20 MG Diagnostic Test (Pha) 1 strip ACHS 05/24/25 17:00 05/25/25 15:12 1 STRIP Insulin Human Regular ACHS SC 05/24/25 17:00 Dextrose 50 ml UD PRN IV 05/24/25 15:00 Acetaminophen/ Hydrocodone Bitart 1 tab Q4HP PRN PO 05/24/25 15:00 Ondansetron HCl 4 mg Q4HP PRN IV 05/24/25 15:00 Acetaminophen 650 mg Q6HP PRN PO 05/24/25 15:00 Morphine Sulfate 2 mg Q6HPRN PRN IV 05/24/25 15:00 Clonidine HCl 0.1 mg Q6HP PRN PO 05/25/25 00:15 05/25/25 18:20 0.1 MG Ceftriaxone Sodium 50 ml @ 100 mls/hr DAILY@09 IV 05/26/25 09:00 objective Hemodynamically stable Physical exam unchanged laboratory and microbiology Laboratory Tests 05/25/25 05:55 Test 05/25/25 05:55 Range/Units Serum Glucose 100 74-106 mg/dL MRI ABD IMPRESSION: Heterogeneous septated lesion measuring 4.4 cm in the right renal mid to lower pole with enhancement of the septation and overall signal characteristics that are not characteristic of a simple cyst. This could represent renal neoplasm versus complex cyst. Recommend urology consultation for further management. PET scan/ tissue sampling can be obtained to further evaluate. Rectal/anal wall thickening. Recommend GI consultation to further evaluate exclude neoplasm. Problems(with codes): (1) Hepatic cyst (2) Renal mass (3) Abdominal pain of unknown etiology (4) Diverticulitis of intestine (5) Elevated lactic acid level (6) Abnormal finding on CT scan Prognosis Plan Stool softeners IV antibiotics Supportive care Diet as tolerated Neurology consult for evaluation of renal mass either as an inpatient or if discharge she can be seen in urology clinic as an outpatient Outpatient follow up with GI Services for elective colonoscopy once acute symptoms subside Plan discussed with: Other (Nurse) NOE WILSON MD May 25, 2025 21:02
[2025-05-26 01:00] VITALS: BP 123/68; PULSE 60; RESP 18; TEMP 97.6; O2SAT 98
[2025-05-26 05:00] VITALS: BP 111/61; PULSE 61; RESP 18; TEMP 97.8; O2SAT 99
[2025-05-26 09:16] VITALS: BP 133/76; PULSE 58; RESP 18; TEMP 98.2; O2SAT 98
[2025-05-26] MEDS: cefTRIAXone 1GM/50ML D5W 50 ML IV SCH (09:27)
[2025-05-26 12:47] VITALS: BP 135/88; PULSE 59; RESP 17; TEMP 97.9; O2SAT 99
--- NOTE | 2025-05-26 15:07 | DVHPN2 ---
Subjective The patient is seen and examined at bedside. No complaint today. All his son, daughter, sister at bedside. Reviewed: Care Plan, H&P, Labs, Medications, Previous Orders, Radiology Changes from previous H/P or p: No Changes Objective Vitals Vital Signs Date Time Temp Pulse Resp B/P (MAP) Pulse Ox O2 Delivery O2 Flow Rate FiO2 05/26/25 12:47 97.9 59 17 135/88 (104) 99 97.9 05/26/25 08:00 Room Air* 0 21 Intake/Output Intake and Output 05/26/25 07:00 Intake Total 655 ml Balance 655 ml Intake Oral 655 ml # Voids 6 # Bowel Movements 1 General Appearance: Alert, Oriented X3, Cooperative, No acute distress HEENT: Atraumatic, PERRLA, EOMI, Mucous membr. moist/pink Neck: Supple Lungs: Clear to auscultation, Normal air movement Cardiovascular: Regular rate, Normal S1, Normal S2, No murmurs, Gallops, Rubs Abdomen: Normal bowel sounds, Soft, No tenderness Neuro: Cranial nerves 3-12 NL Psych/Mental Status: Mental status NL Medications Current Medications Medications Dose Ordered Sig/Bruno Route Start Time Stop Time Status Last Admin Dose Admin Losartan Potassium 100 mg DAILY PO 05/25/25 10:00 05/26/25 09:32 100 MG Levothyroxine Sodium 88 mcg QAM@0600 PO 05/25/25 06:00 05/26/25 06:31 88 MCG Atorvastatin Calcium 10 mg HS PO 05/24/25 22:00 05/25/25 21:15 10 MG Furosemide 20 mg BIDD PO 05/24/25 18:00 05/26/25 06:33 20 MG Diagnostic Test (Pha) 1 strip ACHS 05/24/25 17:00 05/26/25 12:18 1 STRIP Insulin Human Regular ACHS SC 05/24/25 17:00 Dextrose 50 ml UD PRN IV 05/24/25 15:00 Acetaminophen/ Hydrocodone Bitart 1 tab Q4HP PRN PO 05/24/25 15:00 Ondansetron HCl 4 mg Q4HP PRN IV 05/24/25 15:00 Acetaminophen 650 mg Q6HP PRN PO 05/24/25 15:00 Morphine Sulfate 2 mg Q6HPRN PRN IV 05/24/25 15:00 Clonidine HCl 0.1 mg Q6HP PRN PO 05/25/25 00:15 05/25/25 18:20 0.1 MG Ceftriaxone Sodium 50 ml @ 100 mls/hr DAILY@09 IV 05/26/25 09:00 05/26/25 09:27 100 MLS/HR Laboratory Results Laboratory Tests 05/25/25 05:55 Urinalysis Test 05/24/25 12:27 Urine Color Light-yellow (Yellow) Urine Clarity Clear (Clear) Urine pH 7.5 (5.0-9.0) Urine Specific [place] 1.010 (1.001-1.035) Urine Protein Negative (Negative) Urine Ketones Negative (Negative) Urine Blood Trace /uL (Negative) H Urine Nitrite Negative (Negative) Urine Bilirubin Negative (Negative) Urine Urobilinogen Normal mg/dL (Negative) Urine Leukocyte Esterase Negative /uL (Negative) Urine RBC 6 /hpf (0 - 3) Urine Microscopic WBC < 1 /HPF (0-3) Urine Squamous Epithelial Cells None seen /hpf (<5) Urine Bacteria None seen /hpf (None Seen) Urine Glucose Normal mg/dL (Normal) Labs and/or images reviewed: Labs reviewed by me Assessment/Plan Assessment/Plan Acute abdominal pain Acute mild diverticulitis Diabetes mellitus Hypertension Cystitis Right renal lower pole soft tissue density mass, MRI showed Heterogeneous septated lesion measuring 4.4 cm in the right renal mid to lower pole with enhancement of the septation and overall signal characteristics that are not characteristic of a simple cyst. This could represent renal neoplasm versus complex cyst. Recommend urology consultation for further management. PET scan/ tissue sampling can be obtained to further evaluate. Wall thickening of the distal rectum, possible neoplasm per CT scan Plan: Continuing current management. Appreciate GI specialist input. Outpatient colonoscopy per GI specialist, Dr Bustillos. Will wait for urologist evaluation. Discharge planning. DW with patient and all his family about plan of care. Patient and family verbally understand. This medical document was created using an electronic medical record system with [employer] direct computerized dictation system. Although this document has been carefully reviewed, there may still be some phonetic and typographical errors. These areas are purely typographical due to imperfections of the software programs, and do not reflect any compromise in the patient's medical care. Plan discussed with: Patient, Daughter, Son, Other (sister, friend) Date of Service: May 26, 2025 Billing Provider: MERYL VU MD Common Visit Codes: [id number] INP/OBS CARE(HIGH) MERYL VU MD May 26, 2025 15:07
[2025-05-26 16:40] VITALS: BP 145/89; PULSE 64; RESP 16; TEMP 98; O2SAT 98
[2025-05-26 21:00] VITALS: BP 113/50; PULSE 62; RESP 17; TEMP 97.5; O2SAT 97
--- NOTE | 2025-05-26 23:59 | DVHPN2 ---
Progress Note - Dictate Date Seen: May 26, 2025 Medical Necessity Reason Pt with a Central, PICC or Fol: No Subjective No new complaints Patient is tolerating a carb controlled diet He had one bowel movement today, no rectal bleeding MRI findings noted IMPRESSION: Heterogeneous septated lesion measuring 4.4 cm in the right renal mid to lower pole with enhancement of the septation and overall signal characteristics that are not characteristic of a simple cyst. This could represent renal neoplasm versus complex cyst. Recommend urology consultation for further management. PET scan/ tissue sampling can be obtained to further evaluate. Rectal/anal wall thickening. Recommend GI consultation to further evaluate exclude neoplasm. vital signs Vital Sign Date Time Temp Pulse Resp B/P (MAP) Pulse Ox O2 Delivery O2 Flow Rate FiO2 05/26/25 21:00 97.5 62 17 113/50 (71) 97 97.5 05/26/25 20:00 Room Air* 0 21 Total Intake and Output 05/25/25 05/25/25 05/26/25 15:00 23:00 07:00 Intake Total 375 ml 280 ml Balance 375 ml 280 ml medications Current Medications Medications Dose Ordered Sig/Bruno Route Start Time Stop Time Status Last Admin Dose Admin Losartan Potassium 100 mg DAILY PO 05/25/25 10:00 05/26/25 09:32 100 MG Levothyroxine Sodium 88 mcg QAM@0600 PO 05/25/25 06:00 05/26/25 06:31 88 MCG Atorvastatin Calcium 10 mg HS PO 05/24/25 22:00 05/26/25 21:07 10 MG Furosemide 20 mg BIDD PO 05/24/25 18:00 05/26/25 17:56 20 MG Diagnostic Test (Pha) 1 strip ACHS 05/24/25 17:00 05/26/25 21:09 1 STRIP Insulin Human Regular ACHS SC 05/24/25 17:00 Dextrose 50 ml UD PRN IV 05/24/25 15:00 Acetaminophen/ Hydrocodone Bitart 1 tab Q4HP PRN PO 05/24/25 15:00 Ondansetron HCl 4 mg Q4HP PRN IV 05/24/25 15:00 Acetaminophen 650 mg Q6HP PRN PO 05/24/25 15:00 Morphine Sulfate 2 mg Q6HPRN PRN IV 05/24/25 15:00 Clonidine HCl 0.1 mg Q6HP PRN PO 05/25/25 00:15 05/25/25 18:20 0.1 MG Ceftriaxone Sodium 50 ml @ 100 mls/hr DAILY@09 IV 05/26/25 09:00 05/26/25 09:27 100 MLS/HR objective Hemodynamically stable Physical exam unchanged laboratory and microbiology Laboratory Tests 05/25/25 05:55 Test 05/25/25 05:55 Range/Units Serum Glucose 100 74-106 mg/dL Problems(with codes): (1) Renal mass (2) Hepatic cyst (3) Abdominal pain of unknown etiology (4) Diverticulitis of intestine (5) Elevated lactic acid level (6) Abnormal finding on CT scan Prognosis Plan Stool softeners IV antibiotics Supportive care; check CEA level Diet as tolerated Awaiting urology consult or possible outpatient referral to Urology Neurology consult for evaluation of renal mass either as an inpatient or if discharge she can be seen in urology clinic as an outpatient Outpatient follow up with GI Services for elective colonoscopy once acute symptoms subside Plan discussed with: Patient NOE WILSON MD May 26, 2025 23:59
[2025-05-27] VITALS (8 sets, daily range): BP systolic 108–127; BP diastolic 56–89; PULSE 54–72; RESP 15–18; TEMP 97–98.5; O2SAT 97–99
--- NOTE | 2025-05-27 10:54 | DVHINCON2 ---
Date of service: May 27, 2025 Referring Physician Hospitalist Reason for Consultation 4.4 cm right renal mass, exophytic History of Present Illness 89-year-old male with abdominal pain. Patient reports a five week history of intermittent seen nor or abdominal pain. He states that over the past is five days he has been more constant this. Denies nausea or vomiting. No fever or chills. No other acute complaints reported. He underwent radical prostatectomy >20 years ago. Now he has incidental right renal mass 4.4 cm found on imaging studies. Past Medical History Prostate cancer, diabetes mellitus, hypertension Past Surgical History Thyroidectomy, prostatectomy Family History: Patient reports no known family medical history. Allergies: Coded Allergies: NO KNOWN ALLERGIES (Unverified , 02/27/20) Home Meds Reported Medications Levothyroxine Sodium (Levothyroxine Sodium) 88 Mcg Tab, 1 TAB PO DAILY, #30 TAB 5 Refills 05/24/25 Losartan Potassium (Losartan Potassium) 100 Mg Tab, 1 TAB PO DAILY, #30 TAB 5 Refills 05/24/25 Review of Systems Review of systems are currently negative otherwise addressed in HPI. Allergies: Coded Allergies: NO KNOWN ALLERGIES (Unverified , 02/27/20) Medications Current Medications Medications Dose Ordered Sig/Bruno Route Start Time Stop Time Status Last Admin Dose Admin Losartan Potassium 100 mg DAILY PO 05/25/25 10:00 Levothyroxine Sodium 88 mcg QAM@0600 PO 05/25/25 06:00 Atorvastatin Calcium 10 mg HS PO 05/24/25 22:00 Furosemide 20 mg BIDD PO 05/24/25 18:00 Diagnostic Test (Pha) 1 strip ACHS 05/24/25 17:00 Insulin Human Regular ACHS SC 05/24/25 17:00 Dextrose 50 ml UD PRN IV 05/24/25 15:00 Acetaminophen/ Hydrocodone Bitart 1 tab Q4HP PRN PO 05/24/25 15:00 Ondansetron HCl 4 mg Q4HP PRN IV 05/24/25 15:00 Acetaminophen 650 mg Q6HP PRN PO 05/24/25 15:00 Morphine Sulfate 2 mg Q6HPRN PRN IV 05/24/25 15:00 Vital Signs Vital Signs Date Time Temp Pulse Resp B/P (MAP) Pulse Ox O2 Delivery O2 Flow Rate FiO2 05/27/25 09:44 123/82 05/27/25 09:00 97.2 64 17 99 97.2 05/27/25 08:20 Room Air* 0 21 Physical Exam Vital Signs Date Time Temp Pulse Resp B/P (MAP) Pulse Ox O2 Delivery O2 Flow Rate FiO2 05/24/25 14:01 61 18 98 Venturi Mask 05/24/25 14:01 97.8 152/89 (110) 97.8 Exam Gen: 89-year-old male in mild distress. Skin: Warm, dry, normal color and texture, no rash. HEENT: Normocephalic atraumatic, mucous membranes moist and pink. Neck: Cervical and supraclavicular nodes normal without enlargement, trachea is midline, thyroid gland is normal without masses. Pulmonary: Clear to auscultation and percussion bilaterally. Cardiac: Regular rate and rhythm. No murmur Abdomen: Soft, lower abdominal tenderness, nondistended, bowel sounds present all 4 quadrants, no guarding, no rigidity, no organomegaly. Extremities: No cyanosis, clubbing, no edema Neuro: Cranial nerves II through XII grossly intact, normal affect and speech, no focal motor deficits. Labs/Diagnostic Data Labs Test 05/27/25 06:18 05/27/25 05:51 05/25/25 05:55 05/25/25 00:00 Range/Units POC Glucose 117 H 70-106 mg/dl White Blood Count 5.1 4.4-10.8 10^3/uL Red Blood Count 4.19 L 4.5-5.90 10^6/uL Hemoglobin 13.7 13.5-17.5 g/dL Hematocrit 39.7 L 41.0-53.0 % Mean Corpuscular Volume 94.8 80.0-100.0 fL Mean Corpuscular Hemoglobin 32.6 H 28.0-32.0 pg Mean Corpuscular Hemoglobin Concent 34.4 32.0-36.0 g/dL Red Cell Distribution Width 14.5 H 11.8-14.3 % Platelet Count 196 140-450 10^3/uL Mean Platelet Volume 8.0 6.9-10.8 fL Neutrophils (%) (Auto) 37.0-80.0 % Lymphocytes (%) (Auto) 10.0-50.0 % Monocytes (%) (Auto) 0.0-12.0 % Basophils (%) (Auto) 0.0-2.0 % Neutrophils # (Auto) 1.6-8.6 10 ^3/uL Lymphocytes # (Auto) 0.4-5.4 10 ^3/uL Monocytes # (Auto) 0-1.3 10 ^3/uL Differential Total Cells Counted 100.0 100 Neutrophils % (Manual) 53 37.0-80.0 Band Neutrophils % (Manual) 1 Lymphocytes % (Manual) 27 10.0-50.0 Monocytes % (Manual) 17 H 0-12 Eosinophils % (Manual) 2 0-7 Basophils % (Manual) 0 0.0-2.0 Metamyelocytes % (manual) 0 Myelocytes % (Manual) 0 Promyelocytes % (Manual) 0 Blast Cells % (Manual) 0 Reactive Lymphocytes 0 Platelet Estimate Adequate Poikilocytosis (manual) Slight Anisocytosis (manual) Slight [place] Cells Few Sodium Level 135 L 136-145 mmol/L Potassium Level 4.1 3.5-5.1 mmol/L Chloride Level 100 98-107 mmol/L Carbon Dioxide Level 28 20-31 mmol/L Anion Gap 7 5-15 Blood Urea Nitrogen 18 9-23 mg/dL Creatinine 0.88 0.700-1.30 mg/dL Glomerular Filtration Rate Calc 82 >90 mL/min BUN/Creatinine Ratio 20.5 H 10.0-20.0 Serum Glucose 100 74-106 mg/dL Calcium Level 9.1 8.7-10.4 mg/dL Troponin I High Sensitivity 5 </=54 ng/L Test 05/24/25 15:10 05/24/25 12:50 05/24/25 12:27 Range/Units Lactic Acid Level 0.8 0.4-2.0 mmol/L Eosinophils (%) (Auto) 1.3 0.0-7.0 % Eosinophils # (Auto) 0.1 0-0.8 10 ^3/uL Basophils # (Auto) 0 0-0.2 10 ^3/uL Nucleated Red Blood Cells 0.0 % Total Bilirubin 0.9 0.2-1.0 mg/dL Aspartate Amino Transferase (AST) 25 13-40 U/L Alanine Aminotransferase (ALT) 18 7-40 U/L Alkaline Phosphatase 136 H 46-116 U/L Total Protein 7.4 5.7-8.2 g/dL Albumin 5.1 H 3.2-4.8 g/dL Lipase 29 12-53 U/L Urine Color Light-yellow Yellow Urine Clarity Clear Clear Urine pH 7.5 5.0-9.0 Urine Specific [place] 1.010 1.001-1.035 Urine Protein Negative Negative Urine Ketones Negative Negative Urine Blood Trace H Negative /uL Urine Nitrite Negative Negative Urine Bilirubin Negative Negative Urine Urobilinogen Normal Negative mg/dL Urine Leukocyte Esterase Negative Negative /uL Urine RBC 6 0 - 3 /hpf Urine Microscopic WBC < 1 0-3 /HPF Urine Squamous Epithelial Cells None seen <5 /hpf Urine Bacteria None seen None Seen /hpf Urine Glucose Normal Normal mg/dL PATIENT: LUCINA JIMENEZ ACCT: [id number] UNIT: [id number] : 1935 LOC: CENTRAL ROOM / BED: [facility] / B AGE / SEX: 89 / M ADM STATUS: ADM IN SERVICE 1224 ORDERING PHYSICIAN: MERYL VU MD PROCEDURE(s): [id number] - MRI ABD & PLEVIS W/WO CONT REASON: ORDER NUMBER(s): [id number], ACCESSION NUMBER(s): [id number] PROCEDURE: MRI MRI ABD PLEVIS W/WO CONT Indication: Previous CT and described The right renal potential mass. COMPARISON: None TECHNIQUE: Multiplanar multisequence images of the abdomen, pelvis were obtained with and without contrast.. FINDINGS: Adrenal glands, spleen unremarkable. 3 mm pancreatic tail cystic lesion. Multiple hepatic cysts including right hepatic lobe cysts measuring 2.2 cm, left hepatic lobe cyst measuring 2.3 cm. No evidence for cholelithiasis. Common bile duct measures 6 mm. The kidneys demonstrate no hydronephrosis. Right renal T2 dark lesion measuring 4.4 x 3.6 cm. This lesion contains an internal septation with enhancement. There is overall heterogeneous signal within this lesion. Lesion does not have the features of the simple cyst. Stomach is partially distended. Rectal/anal wall thickening most pronounced anteriorly at the 12 o'clock position Colonic diverticular disease. No secondary signs for appendicitis. Abdominal aorta normal in caliber. No retroperitoneal lymphadenopathy. Small fat containing right inguinal hernia. No inguinal lymphadenopathy. Bladder is partially distended. No free pelvic fluid. Susceptibility artifact of the lower pelvis from the surgical ruth in the pelvis and pelvic sidewall. IMPRESSION: Heterogeneous septated lesion measuring 4.4 cm in the right renal mid to lower pole with enhancement of the septation and overall signal characteristics that are not characteristic of a simple cyst. This could represent renal neoplasm versus complex cyst. Recommend urology consultation for further management. PET scan/ tissue sampling can be obtained to further evaluate. Rectal/anal wall thickening. Recommend GI consultation to further evaluate exclude neoplasm. Other findings as described ATED BY: MIRANDA MARTIN MD DICTATED DATE/TIME: 05/25/251744 SIGNED BY: MIRANDA MARTIN MD SIGNED DATE/TIME: 05/25/251744 CC: Assessment Right renal mass, exophytic 4.4 cm mid to lower pole History of prostate cancer Plan/Recommendation Consultation for Cryoablation with IR service If cryoablation is not an option, then he will need robotic right radical nephrectomy at [facility] Plan discussed with: Patient, Other ISAAC EASTMAN MD May 27, 2025 10:54
--- NOTE | 2025-05-27 14:47 | DVHPN2 ---
Subjective The patient is seen and examined at bedside. No complaint today. All his son, daughter, sister at bedside. Reviewed: Care Plan, H&P, Labs, Medications, Previous Orders, Radiology Changes from previous H/P or p: No Changes Objective Vitals Vital Signs Date Time Temp Pulse Resp B/P (MAP) Pulse Ox O2 Delivery O2 Flow Rate FiO2 05/27/25 13:00 98.0 61 17 120/89 (99) 99 98.0 05/27/25 08:20 Room Air* 0 21 Intake/Output Intake and Output 05/27/25 07:00 Intake Total 1850 ml Balance 1850 ml Intake Oral 1800 ml IV Total 50 ml # Voids 7 # Bowel Movements 1 General Appearance: Alert, Oriented X3, Cooperative, No acute distress HEENT: Atraumatic, PERRLA, EOMI, Mucous membr. moist/pink Neck: Supple Lungs: Clear to auscultation, Normal air movement Cardiovascular: Regular rate, Normal S1, Normal S2, No murmurs, Gallops, Rubs Abdomen: Normal bowel sounds, Soft, No tenderness Neuro: Cranial nerves 3-12 NL Psych/Mental Status: Mental status NL Medications Current Medications Medications Dose Ordered Sig/Bruno Route Start Time Stop Time Status Last Admin Dose Admin Losartan Potassium 100 mg DAILY PO 05/25/25 10:00 05/27/25 09:44 100 MG Levothyroxine Sodium 88 mcg QAM@0600 PO 05/25/25 06:00 05/27/25 06:20 88 MCG Atorvastatin Calcium 10 mg HS PO 05/24/25 22:00 05/26/25 21:07 10 MG Furosemide 20 mg BIDD PO 05/24/25 18:00 05/27/25 06:20 20 MG Diagnostic Test (Pha) 1 strip ACHS 05/24/25 17:00 05/27/25 11:45 1 STRIP Insulin Human Regular ACHS SC 05/24/25 17:00 05/27/25 11:56 2 UNITS Dextrose 50 ml UD PRN IV 05/24/25 15:00 Acetaminophen/ Hydrocodone Bitart 1 tab Q4HP PRN PO 05/24/25 15:00 Ondansetron HCl 4 mg Q4HP PRN IV 05/24/25 15:00 Acetaminophen 650 mg Q6HP PRN PO 05/24/25 15:00 Morphine Sulfate 2 mg Q6HPRN PRN IV 05/24/25 15:00 Clonidine HCl 0.1 mg Q6HP PRN PO 05/25/25 00:15 05/25/25 18:20 0.1 MG Ceftriaxone Sodium 50 ml @ 100 mls/hr DAILY@09 IV 05/26/25 09:00 05/27/25 08:21 100 MLS/HR Laboratory Results Laboratory Tests 05/25/25 05:55 Urinalysis Test 05/24/25 12:27 Urine Color Light-yellow (Yellow) Urine Clarity Clear (Clear) Urine pH 7.5 (5.0-9.0) Urine Specific [place] 1.010 (1.001-1.035) Urine Protein Negative (Negative) Urine Ketones Negative (Negative) Urine Blood Trace /uL (Negative) H Urine Nitrite Negative (Negative) Urine Bilirubin Negative (Negative) Urine Urobilinogen Normal mg/dL (Negative) Urine Leukocyte Esterase Negative /uL (Negative) Urine RBC 6 /hpf (0 - 3) Urine Microscopic WBC < 1 /HPF (0-3) Urine Squamous Epithelial Cells None seen /hpf (<5) Urine Bacteria None seen /hpf (None Seen) Urine Glucose Normal mg/dL (Normal) Labs and/or images reviewed: Labs reviewed by me Assessment/Plan Assessment/Plan Acute abdominal pain Acute mild diverticulitis Diabetes mellitus Hypertension Cystitis Right renal lower pole soft tissue density mass, MRI showed Heterogeneous septated lesion measuring 4.4 cm in the right renal mid to lower pole with enhancement of the septation and overall signal characteristics that are not characteristic of a simple cyst. This could represent renal neoplasm versus complex cyst. Recommend urology consultation for further management. PET scan/ tissue sampling can be obtained to further evaluate. Wall thickening of the distal rectum, possible neoplasm per CT scan History of prostate cancer Plan: Continuing current management. Appreciate GI specialist input. Outpatient colonoscopy per GI specialist, Dr Bustillos. Appreciate Dr. Landaverde input. Regarding to the patient Right renal mass, exophytic 4.4 cm mid to lower pole, he recommend consultation for Cryoablation with IR service If cryoablation is not an option, then he will need robotic right radical nephrectomy at higher level of care This medical document was created using an electronic medical record system with M*[employer] direct computerized dictation system. Although this document has been carefully reviewed, there may still be some phonetic and typographical errors. These areas are purely typographical due to imperfections of the software programs, and do not reflect any compromise in the patient's medical care. Plan discussed with: Patient Date of Service: May 27, 2025 Billing Provider: MERYL VU MD Common Visit Codes: [id number] INP/OBS CARE(HIGH) MERYL VU MD May 27, 2025 14:47
--- NOTE | 2025-05-27 16:34 | DVHPN2 ---
Progress Note - Dictate Date Seen: May 27, 2025 Medical Necessity Reason Pt with a Central, PICC or Fol: No Subjective No new complaints Patient is tolerating a carb controlled diet He had one bowel movement today, no rectal bleeding Patient was seen by urology consult Dr. Landaverde vital signs Vital Sign Date Time Temp Pulse Resp B/P (MAP) Pulse Ox O2 Delivery O2 Flow Rate FiO2 05/27/25 13:00 98.0 61 17 120/89 (99) 99 98.0 05/27/25 08:20 Room Air* 0 21 Total Intake and Output 05/26/25 05/26/25 05/27/25 15:00 23:00 07:00 Intake Total 50 ml 1000 ml 800 ml Balance 50 ml 1000 ml 800 ml medications Current Medications Medications Dose Ordered Sig/Bruno Route Start Time Stop Time Status Last Admin Dose Admin Losartan Potassium 100 mg DAILY PO 05/25/25 10:00 05/27/25 09:44 100 MG Levothyroxine Sodium 88 mcg QAM@0600 PO 05/25/25 06:00 05/27/25 06:20 88 MCG Atorvastatin Calcium 10 mg HS PO 05/24/25 22:00 05/26/25 21:07 10 MG Furosemide 20 mg BIDD PO 05/24/25 18:00 05/27/25 06:20 20 MG Diagnostic Test (Pha) 1 strip ACHS 05/24/25 17:00 05/27/25 11:45 1 STRIP Insulin Human Regular ACHS SC 05/24/25 17:00 05/27/25 11:56 2 UNITS Dextrose 50 ml UD PRN IV 05/24/25 15:00 Acetaminophen/ Hydrocodone Bitart 1 tab Q4HP PRN PO 05/24/25 15:00 Ondansetron HCl 4 mg Q4HP PRN IV 05/24/25 15:00 Acetaminophen 650 mg Q6HP PRN PO 05/24/25 15:00 Morphine Sulfate 2 mg Q6HPRN PRN IV 05/24/25 15:00 Clonidine HCl 0.1 mg Q6HP PRN PO 05/25/25 00:15 05/25/25 18:20 0.1 MG Ceftriaxone Sodium 50 ml @ 100 mls/hr DAILY@09 IV 05/26/25 09:00 05/27/25 08:21 100 MLS/HR objective General Appearance: Alert, Oriented X3, Cooperative, No acute distress HEENT: Atraumatic, PERRLA, EOMI, Mucous membr. moist/pink Neck: Supple Lungs: Clear to auscultation, Normal air movement Cardiovascular: Regular rate, Normal S1, Normal S2, No murmurs, Gallops, Rubs Abdomen: Normal bowel sounds, Soft, No tenderness Neuro: Cranial nerves 3-12 NL Psych/Mental Status: Mental status NL laboratory and microbiology Laboratory Tests 05/25/25 05:55 Test 05/25/25 05:55 Range/Units Serum Glucose 100 74-106 mg/dL Problems(with codes): (1) Renal mass (2) Hepatic cyst (3) Diverticulitis of intestine (4) Abnormal finding on CT scan Prognosis Plan Urology recommendations noted IR consult for cryoablation or referral to higher level of care for radical right nephrectomy Continue stool softeners and diet as tolerated CEA level pending Discharge planning as per hospitalist Outpatient follow up with GI Services for elective colonoscopy in 4-6 weeks Dietary Evaluation Review Comments: 1) Continue 60g CCHO cardiac diet 2) Encourage optimal PO intake 3) Follow-up with gastroenterology, urology, nephrology, and oncology 4) Continue to monitor I&O, labs, and skin integrity Expected Outcomes/Goals: 1) appetite and labs to improve 2) f/u in 3-5 days Plan discussed with: Patient NOE WILSON MD May 27, 2025 16:34
[2025-05-28] VITALS (8 sets, daily range): BP systolic 106–135; BP diastolic 72–88; PULSE 59–74; RESP 16–18; TEMP 97–98.6; O2SAT 95–99
--- NOTE | 2025-05-28 10:54 | DVHPN2 ---
Subjective The patient is seen and examined at bedside. No complaint today. Waiting for IR for possible cryotherapy of the kidney mass Reviewed: Care Plan, H&P, Labs, Medications, Previous Orders, Radiology Changes from previous H/P or p: No Changes Objective Vitals Vital Signs Date Time Temp Pulse Resp B/P (MAP) Pulse Ox O2 Delivery O2 Flow Rate FiO2 05/28/25 09:53 106/76 05/28/25 09:00 98.0 61 17 99 98.0 05/28/25 08:20 Room Air* 0 21 Intake/Output Intake and Output 05/28/25 07:00 Intake Total 870 ml Output Total 0 ml Balance 870 ml Intake Oral 820 ml IV Total 50 ml Output Stool Total 0 ml # Voids 6 # Bowel Movements 1 General Appearance: Alert, Oriented X3, Cooperative, No acute distress HEENT: Atraumatic, PERRLA, EOMI, Mucous membr. moist/pink Neck: Supple Lungs: Clear to auscultation, Normal air movement Cardiovascular: Regular rate, Normal S1, Normal S2, No murmurs, Gallops, Rubs Abdomen: Normal bowel sounds, Soft, No tenderness Neuro: Cranial nerves 3-12 NL Psych/Mental Status: Mental status NL Medications Current Medications Medications Dose Ordered Sig/Bruno Route Start Time Stop Time Status Last Admin Dose Admin Losartan Potassium 100 mg DAILY PO 05/25/25 10:00 05/28/25 09:53 100 MG Levothyroxine Sodium 88 mcg QAM@0600 PO 05/25/25 06:00 05/27/25 06:20 88 MCG Atorvastatin Calcium 10 mg HS PO 05/24/25 22:00 05/27/25 21:26 10 MG Furosemide 20 mg BIDD PO 05/24/25 18:00 05/27/25 06:20 20 MG Diagnostic Test (Pha) 1 strip ACHS 05/24/25 17:00 05/28/25 06:11 1 STRIP Insulin Human Regular ACHS SC 05/24/25 17:00 05/27/25 21:34 3 UNITS Dextrose 50 ml UD PRN IV 05/24/25 15:00 Acetaminophen/ Hydrocodone Bitart 1 tab Q4HP PRN PO 05/24/25 15:00 Ondansetron HCl 4 mg Q4HP PRN IV 05/24/25 15:00 Acetaminophen 650 mg Q6HP PRN PO 05/24/25 15:00 Morphine Sulfate 2 mg Q6HPRN PRN IV 05/24/25 15:00 Clonidine HCl 0.1 mg Q6HP PRN PO 05/25/25 00:15 05/25/25 18:20 0.1 MG Ceftriaxone Sodium 50 ml @ 100 mls/hr DAILY@09 IV 05/26/25 09:00 05/28/25 08:49 100 MLS/HR Laboratory Results Laboratory Tests 05/25/25 05:55 Urinalysis Test 05/24/25 12:27 Urine Color Light-yellow (Yellow) Urine Clarity Clear (Clear) Urine pH 7.5 (5.0-9.0) Urine Specific [place] 1.010 (1.001-1.035) Urine Protein Negative (Negative) Urine Ketones Negative (Negative) Urine Blood Trace /uL (Negative) H Urine Nitrite Negative (Negative) Urine Bilirubin Negative (Negative) Urine Urobilinogen Normal mg/dL (Negative) Urine Leukocyte Esterase Negative /uL (Negative) Urine RBC 6 /hpf (0 - 3) Urine Microscopic WBC < 1 /HPF (0-3) Urine Squamous Epithelial Cells None seen /hpf (<5) Urine Bacteria None seen /hpf (None Seen) Urine Glucose Normal mg/dL (Normal) Labs and/or images reviewed: Labs reviewed by me Assessment/Plan Assessment/Plan Acute abdominal pain Acute mild diverticulitis Diabetes mellitus Hypertension Cystitis Right renal lower pole soft tissue density mass, MRI showed Heterogeneous septated lesion measuring 4.4 cm in the right renal mid to lower pole with enhancement of the septation and overall signal characteristics that are not characteristic of a simple cyst. This could represent renal neoplasm versus complex cyst. Recommend urology consultation for further management. PET scan/ tissue sampling can be obtained to further evaluate. Wall thickening of the distal rectum, possible neoplasm per CT scan History of prostate cancer Plan: Continuing current management. Appreciate GI specialist input. Outpatient colonoscopy per GI specialist, Dr Bustillos. Appreciate Dr. Landaverde input. Regarding to the patient Right renal mass, exophytic 4.4 cm mid to lower pole, he recommend consultation for Cryoablation with IR service If cryoablation is not an option, then he will need robotic right radical nephrectomy at higher level of care. Waiting for IR today for cryoablation. This medical document was created using an electronic medical record system with M*[employer]and[employer] direct computerized dictation system. Although this document has been carefully reviewed, there may still be some phonetic and typographical errors. These areas are purely typographical due to imperfections of the software programs, and do not reflect any compromise in the patient's medical care. Plan discussed with: Patient My Orders Orders - MERYL VU MD Procedure Category Date Status Time Npo (Nothing By DIET 05/28/25 Transmitted Mouth) Diet Breakfast Date of Service: May 28, 2025 Billing Provider: MERYL VU MD Common Visit Codes: [id number] INP/OBS CARE(HIGH) MERYL VU MD May 28, 2025 10:54
--- NOTE | 2025-05-28 14:55 | DVHPN2 ---
Progress Note - Dictate Date Seen: May 28, 2025 Medical Necessity Reason Pt with a Central, PICC or Fol: No vital signs Vital Sign Date Time Temp Pulse Resp B/P (MAP) Pulse Ox O2 Delivery O2 Flow Rate FiO2 05/28/25 13:00 98.0 74 17 131/88 (102) 98 98.0 05/28/25 08:20 Room Air* 0 21 Total Intake and Output 05/27/25 05/27/25 05/28/25 15:00 23:00 07:00 Intake Total 50 ml 720 ml 100 ml Output Total 0 ml Balance 50 ml 720 ml 100 ml medications Current Medications Medications Dose Ordered Sig/Bruno Route Start Time Stop Time Status Last Admin Dose Admin Losartan Potassium 100 mg DAILY PO 05/25/25 10:00 05/28/25 09:53 100 MG Levothyroxine Sodium 88 mcg QAM@0600 PO 05/25/25 06:00 05/27/25 06:20 88 MCG Atorvastatin Calcium 10 mg HS PO 05/24/25 22:00 05/27/25 21:26 10 MG Furosemide 20 mg BIDD PO 05/24/25 18:00 05/27/25 06:20 20 MG Diagnostic Test (Pha) 1 strip ACHS 05/24/25 17:00 05/28/25 12:38 1 STRIP Insulin Human Regular ACHS SC 05/24/25 17:00 05/28/25 12:39 2 UNITS Dextrose 50 ml UD PRN IV 05/24/25 15:00 Acetaminophen/ Hydrocodone Bitart 1 tab Q4HP PRN PO 05/24/25 15:00 Ondansetron HCl 4 mg Q4HP PRN IV 05/24/25 15:00 Acetaminophen 650 mg Q6HP PRN PO 05/24/25 15:00 Morphine Sulfate 2 mg Q6HPRN PRN IV 05/24/25 15:00 Clonidine HCl 0.1 mg Q6HP PRN PO 05/25/25 00:15 05/25/25 18:20 0.1 MG Ceftriaxone Sodium 50 ml @ 100 mls/hr DAILY@09 IV 05/26/25 09:00 05/28/25 08:49 100 MLS/HR laboratory and microbiology Laboratory Tests 05/25/25 05:55 Test 05/25/25 05:55 Range/Units Serum Glucose 100 74-106 mg/dL Assessment/Plan IR unable to proceed with cryoablation of renal mass due to location of mass. Too close to bowel/colon. Will need nephrectomy arranged on outpt basis. Problems(with codes): (1) HTN (hypertension) (2) Abnormal finding on CT scan (3) Elevated lactic acid level (4) Diverticulitis of intestine (5) Abdominal pain of unknown etiology (6) Hepatic cyst (7) Renal mass Dietary Evaluation Review Comments: 1) Continue 60g CCHO cardiac diet 2) Encourage optimal PO intake 3) Follow-up with gastroenterology, urology, nephrology, and oncology 4) Continue to monitor I&O, labs, and skin integrity Expected Outcomes/Goals: 1) appetite and labs to improve 2) f/u in 3-5 days Plan discussed with: ZABRINA Jaimes NP May 28, 2025 14:55
[2025-05-29 01:15] VITALS: BP 112/65; PULSE 60; RESP 17; TEMP 97.8; O2SAT 98
[2025-05-29 05:00] VITALS: BP_SYST 124; BP_DIAS 79; BP_DIAS 87; PULSE 63; PULSE 72; RESP 17; TEMP 97.2; TEMP 97.8; O2SAT 97; O2SAT 98
[2025-05-29 08:00] VITALS: PULSE 65; RESP 18; O2SAT 95
[2025-05-29 09:00] VITALS: BP 122/69; PULSE 71; RESP 17; TEMP 97.5; O2SAT 100
--- NOTE | 2025-05-29 10:33 | DVHDS2 ---
Discharge Summary Date of Admission May 24, 2025 at 14:51 Date of Discharge: May 29, 2025 Admitting Diagnosis Acute abdominal pain Acute mild diverticulitis Diabetes mellitus Hypertension Cystitis Right renal lower pole soft tissue density mass, History of prostate cancer. Labs/Diagnostic Data: Laboratory Results Test 05/29/25 06:16 05/27/25 05:51 05/25/25 05:55 05/25/25 00:00 POC Glucose 110 mg/dl (70-106) Carcinoembryonic Antigen 1.53 ng/mL (<=5.0) White Blood Count 5.1 10^3/uL (4.4-10.8) Red Blood Count 4.19 10^6/uL (4.5-5.90) Hemoglobin 13.7 g/dL (13.5-17.5) Hematocrit 39.7 % (41.0-53.0) Mean Corpuscular Volume 94.8 fL (80.0-100.0) Mean Corpuscular Hemoglobin 32.6 pg (28.0-32.0) Mean Corpuscular Hemoglobin Concent 34.4 g/dL (32.0-36.0) Red Cell Distribution Width 14.5 % (11.8-14.3) Platelet Count 196 10^3/uL (140-450) Mean Platelet Volume 8.0 fL (6.9-10.8) Neutrophils (%) (Auto) % (37.0-80.0) Lymphocytes (%) (Auto) % (10.0-50.0) Monocytes (%) (Auto) % (0.0-12.0) Basophils (%) (Auto) % (0.0-2.0) Neutrophils # (Auto) 10 ^3/uL (1.6-8.6) Lymphocytes # (Auto) 10 ^3/uL (0.4-5.4) Monocytes # (Auto) 10 ^3/uL (0-1.3) Differential Total Cells Counted 100.0 (100) Neutrophils % (Manual) 53 (37.0-80.0) Band Neutrophils % (Manual) 1 Lymphocytes % (Manual) 27 (10.0-50.0) Monocytes % (Manual) 17 (0-12) Eosinophils % (Manual) 2 (0-7) Basophils % (Manual) 0 (0.0-2.0) Metamyelocytes % (manual) 0 Myelocytes % (Manual) 0 Promyelocytes % (Manual) 0 Blast Cells % (Manual) 0 Reactive Lymphocytes 0 Platelet Estimate Adequate Poikilocytosis (manual) Slight Anisocytosis (manual) Slight Raffaele Cells Few Sodium Level 135 mmol/L (136-145) Potassium Level 4.1 mmol/L (3.5-5.1) Chloride Level 100 mmol/L (98-107) Carbon Dioxide Level 28 mmol/L (20-31) Anion Gap 7 (5-15) Blood Urea Nitrogen 18 mg/dL (9-23) Creatinine 0.88 mg/dL (0.700-1.30) Glomerular Filtration Rate Calc 82 mL/min (>90) BUN/Creatinine Ratio 20.5 (10.0-20.0) Serum Glucose 100 mg/dL (74-106) Calcium Level 9.1 mg/dL (8.7-10.4) Troponin I High Sensitivity 5 ng/L (</=54) Test 05/24/25 15:10 05/24/25 12:50 05/24/25 12:27 Lactic Acid Level 0.8 mmol/L (0.4-2.0) Eosinophils (%) (Auto) 1.3 % (0.0-7.0) Eosinophils # (Auto) 0.1 10 ^3/uL (0-0.8) Basophils # (Auto) 0 10 ^3/uL (0-0.2) Nucleated Red Blood Cells 0.0 % Total Bilirubin 0.9 mg/dL (0.2-1.0) Aspartate Amino Transferase (AST) 25 U/L (13-40) Alanine Aminotransferase (ALT) 18 U/L (7-40) Alkaline Phosphatase 136 U/L (46-116) Total Protein 7.4 g/dL (5.7-8.2) Albumin 5.1 g/dL (3.2-4.8) Lipase 29 U/L (12-53) Urine Color Light-yellow (Yellow) Urine Clarity Clear (Clear) Urine pH 7.5 (5.0-9.0) Urine Specific [place] 1.010 (1.001-1.035) Urine Protein Negative (Negative) Urine Ketones Negative (Negative) Urine Blood Trace /uL (Negative) Urine Nitrite Negative (Negative) Urine Bilirubin Negative (Negative) Urine Urobilinogen Normal mg/dL (Negative) Urine Leukocyte Esterase Negative /uL (Negative) Urine RBC 6 /hpf (0 - 3) Urine Microscopic WBC < 1 /HPF (0-3) Urine Squamous Epithelial Cells None seen /hpf (<5) Urine Bacteria None seen /hpf (None Seen) Urine Glucose Normal mg/dL (Normal) Other Laboratory Tests 05/25/25 05:55 Brief Hx & Hospital Course: 89-year-old male presents for evaluation of abdominal pain. Patient reports a five week history of intermittent seen nor or abdominal pain. He states that over the past is five days he has been more constant this. Denies nausea or vomiting. No fever or chills. No other acute complaints reported. The patient was admitted. Workup was done. CT scan abdomen and pelvis showed: Wall thickening of the urinary bladder which may be from inadequate distension. Correlation urinalysis is recommended to exclude cystitis. Sigmoid diverticulosis with minimal adjacent fat stranding and mild segmental wall thickening of the sigmoid. Correlate for mild diverticulitis/sigmoiditis. Wall thickening of the distal rectum. Correlate for possible neoplasm. 4.1 x 4.6 x 4.4 cm exophytic right renal lower pole soft tissue density mass. Renal protocol CT / MRI should be considered for further evaluation. Hepatic cysts. Additional subcentimeter hypodense hepatic lesion is noted that is too small to characterize. So subsequently the patient had a MRI of the abdomen done which showed:Heterogeneous septated lesion measuring 4.4 cm in the right renal mid to lower pole with enhancement of the septation and overall signal characteristics that are not characteristic of a simple cyst. This could represent renal neoplasm versus complex cyst. Recommend urology consultation for further management. PET scan/ tissue sampling can be obtained to further evaluate. Rectal/anal wall thickening. Recommend GI consultation to further evaluate exclude neoplasm. GI specialist was consulted. Dr. Bustillos recommend outpatient colonoscopy to further workup for possible neoplasm around the rectum area. Urology also was consulted. recommend: Consultation for Cryoablation of the renal mass with IR service. If cryoablation is not an option, then he will need robotic right radical nephrectomy at higher level of care. So yesterday the patient was evaluated by interventional radiologist for cryo ablation of the renal mass. However per radiologist's his mass is too close to the bowel and can not do cryo ablation. So urology service recommend to discharge the patient and have him follow up as outpatient for referral to a higher level of care for robotic surgery of right radical nephrectomy. Discuss with son and daughter on the phone in the patient at bedside regarding to follow up plan and the question was answer. The family understand the patient needs to follow up with GI specialist and urologist as outpatient for his abnormal finding from the CT and MRI regarding to his thickening of the rectum and also the right renal mass. The patient also was found to have cystitis and was put on IV antibiotic with Rocephin 1 g IV q.day. I will discharge the patient home today. Advised the patient to follow up with primary care physician 1-2 weeks. Follow up with urologist and GI specialist per schedule. Activity as tolerated. Diet per home diet. Physical exam: HEENT: Normocephalic atraumatic pupils equal react to light and accommodation. Extraocular muscles intact, conjunctiva pink, oropharynx moist, no thrush, no exudate. Lymphatic: No lymphadenopathy Cardiovascular exam: S1, S2 was heard. No murmurs, rubs, gallops Lung: Clear on auscultation bilaterally, no wheeze, rale, rhonchi. GI: Abdominal soft, nondistended, nontenderness, positive bowel sounds. Extremity: No crepitus, cyanosis, edema. Pedal pulses present bilateral. Full range of motion. Skin: Normal turgor, no rash. Psych: Alert, oriented x3. Neurology: No focal deficits, cranial nerve II to XII grossly intact. This medical document was created using an electronic medical record system with M*[employer] direct computerized dictation system. Although this document has been carefully reviewed, there may still be some phonetic and typographical errors. These areas are purely typographical due to imperfections of the software programs, and do not reflect any compromise in the patient's medical care. Condition at Discharge: Stable Final Diagnosis/Problems List Acute abdominal pain Acute mild diverticulitis Diabetes mellitus Hypertension Cystitis Right renal lower pole soft tissue density mass, History of prostate cancer. Discharge Disposition: Home Discharge Instruct/Medications Scheduled Levothyroxine Sodium (Levothyroxine Sodium), 1 TAB PO DAILY, (Reported) Losartan Potassium (Losartan Potassium), 1 TAB PO DAILY, (Reported) Discharge Statement: "Patient was advised to return to the ER or call 911 if any headaches, dizziness, shortness of breath, chest pain, abdominal pain, bleeding, fevers, or worsening of medical condition. Patient was counseled about treatment plan, medications, possible side effects, patientverbalized understanding. All questions were answered to the best of my ability. This discharge took greater then 30 minutes in planning, reviewing documentation, counseling the patient, and discussing with other team members." ASSESSMENT ASSESSMENT Assessment Date of Service: May 29, 2025 Billing Provider: MERYL VU MD Common Visit Codes: [id number] DISCH DAY >30min MERYL VU MD May 29, 2025 10:33
[2025-05-29 13:00] VITALS: BP_SYST 138; BP_SYST 140; BP_DIAS 80; BP_DIAS 87; PULSE 64; PULSE 94; RESP 18; TEMP 94; TEMP 98; O2SAT 96; O2SAT 99
[2025-05-29 17:00] VITALS: BP 155/87; PULSE 59; RESP 17; TEMP 98.1; O2SAT 97
--- NOTE | 2025-05-29 22:46 | DVHPN2 ---
Progress Note - Dictate Date Seen: May 29, 2025 (Time of visit 3:00 p.m.) Medical Necessity Reason Pt with a Central, PICC or Fol: No Subjective No new complaints Patient is tolerating a carb controlled diet He had one bowel movement today, no rectal bleeding Patient was seen by urology consult Dr. Landaverde vital signs Vital Sign Date Time Temp Pulse Resp B/P (MAP) Pulse Ox O2 Delivery O2 Flow Rate FiO2 05/29/25 17:00 98.1 59 17 155/87 (109) 97 98.1 05/29/25 08:00 Room Air* 0 21 Total Intake and Output 05/28/25 05/28/25 05/29/25 15:00 23:00 07:00 Intake Total 50 ml 200 ml 300 ml Balance 50 ml 200 ml 300 ml objective General Appearance: Alert, Oriented X3, Cooperative, No acute distress HEENT: Atraumatic, PERRLA, EOMI, Mucous membr. moist/pink Neck: Supple Lungs: Clear to auscultation, Normal air movement Cardiovascular: Regular rate, Normal S1, Normal S2, No murmurs, Gallops, Rubs Abdomen: Normal bowel sounds, Soft, No tenderness Neuro: Cranial nerves 3-12 NL Psych/Mental Status: Mental status NL laboratory and microbiology Laboratory Tests 05/25/25 05:55 Test 05/25/25 05:55 Range/Units Serum Glucose 100 74-106 mg/dL Problems(with codes): (1) HTN (hypertension) (2) Renal mass (3) Hepatic cyst (4) Abdominal pain of unknown etiology (5) Diverticulitis of intestine (6) Abnormal finding on CT scan Prognosis Plan Discharge planning is in progress Advance diet as tolerated Stool softeners Outpatient follow up with GI Services for elective colonoscopy Dietary Evaluation Review Comments: 1) Continue 60g CCHO cardiac diet 2) Encourage optimal PO intake 3) Follow-up with gastroenterology, urology, nephrology, and oncology 4) Continue to monitor I&O, labs, and skin integrity Expected Outcomes/Goals: 1) appetite and labs to improve 2) f/u in 3-5 days Plan discussed with: Patient NOE WILSON MD May 29, 2025 22:46
== END 2025-05-29 17:10 | disposition home or self-care (01) | DRG 687 ==
LOC: ER 12:04 → OVERFLOW 14:51 → CENTRAL 16:32
PROVIDERS: ADMIT Internal Medicine; ATTEND Internal Medicine
DX: C64.1 Malignant neoplasm of right kidney, except renal pelvis (principal); E87.20 Acidosis, unspecified; K57.32 Diverticulitis of large intestine without perforation or abscess without bleeding; E11.9 Type 2 diabetes mellitus without complications; I10 Essential (primary) hypertension; N30.90 Cystitis, unspecified without hematuria; K76.89 Other specified diseases of liver; Z85.46 Personal history of malignant neoplasm of prostate; Z79.899 Other long term (current) drug therapy
CPT/HCPCS: 36415; 72195; 74176; 74181; 80048; 80053; 81001; 82378; 82962; 83605; 83690; 84484; 85007; 85025; 85027; 93005; 96365; G0378; J1815; J3490